=== PATIENT | female | born 1950 | race Caucasian/White ===

== ENCOUNTER → 2021-03-25 09:17 | Outpatient (CLI) | payer MEDICARE, OTHER, SELFPAY | PROVIDERS: PCP Family Medicine; Visit Provider Nurse Practitioner | DX: Z20.822 Contact with and (suspected) exposure to COVID-19 (principal) | CPT/HCPCS: C9803; U0003; U0005 ==

== ENCOUNTER → 2022-05-19 14:51 | Outpatient (CLI) | payer MEDICARE, OTHER, SELFPAY ==
--- NOTE | 2022-05-19 15:03 | US_ITS ---
FINAL REPORT TECHNIQUE: Transvaginal ultrasound imaging of the pelvis was obtained. CLINICAL HISTORY: Abnormal MRI showed Pelvic Mass-F/u on Mass-- MRI NOT DONE HERE FINDINGS: No prior exam was available for comparison. The uterus is small and atrophic measuring 6.2 x 2.6 x 4.4. In the medium measures 0.6 cm. Fibroids are noted in the uterus. The right ovary measures 2.8 cm in length. The left ovary measures 3.3 cm in length. No free fluid is seen. IMPRESSION: No definite ovarian mass identified. Reviewed, Interpreted and Dictated by Khoi Askew MD Transcribed by Meli Baker Authenticated and [facility]
== END ==
PROVIDERS: PCP Family Medicine; Visit Provider Obstetrics & Gynecology
DX: R19.00 Intra-abdominal and pelvic swelling, mass and lump, unspecified site (principal)
CPT/HCPCS: 76830

== ENCOUNTER 2024-11-09 09:00 | Outpatient (RCR) | payer MEDICARE, OTHER, SELFPAY | END 2024-11-09 23:59 | disposition home or self-care (01) | LOC: PT 09:00 | PROVIDERS: PCP Family Medicine; Visit Provider Orthopaedic Surgery | DX: Z96.651 Presence of right artificial knee joint (principal) | CPT/HCPCS: 97014; 97016; 97110; 97116; 97140; 97163; 97530; G0283 ==

== ENCOUNTER 2024-12-09 15:00 | Outpatient (RCR) | payer MEDICARE, OTHER, SELFPAY | END 2024-12-09 23:59 | disposition home or self-care (01) | LOC: PT 15:00 | PROVIDERS: PCP Family Medicine; Visit Provider Orthopaedic Surgery | DX: Z47.89 Encounter for other orthopedic aftercare (principal); Z96.652 Presence of left artificial knee joint | CPT/HCPCS: 97110; 97140; 97530 ==

== ENCOUNTER 2025-01-05 11:00 | Outpatient (RCR) | payer MEDICARE, OTHER, SELFPAY | END 2025-01-05 23:59 | disposition home or self-care (01) | LOC: PT 11:00 | PROVIDERS: PCP Family Medicine; Visit Provider Orthopaedic Surgery | DX: Z47.89 Encounter for other orthopedic aftercare (principal); Z96.651 Presence of right artificial knee joint | CPT/HCPCS: 97110; 97140; 97530 ==

== ENCOUNTER 2025-04-24 09:23 | Outpatient (CLI) | payer MEDICARE, OTHER, SELFPAY ==
--- OUTSIDE RECORDS SUMMARY | 2025-04-24 09:26 | XMS_ITS | Encounter Summary ---
Author Organization [facility] [address] Care Team Providers Care Distillery Supervisor Name Role Phone Kristie Javier MD Primary Care Provider Wilfredo Pfeiffer MD Unavailable [phone] Jefferson Balderas MD Unavailable [phone] Encounter Details Date Type Department Care Team (Late st Contact Info) Description 01/31/2025 Results Follow-Up [facility] [address] [place] [address] Kristie Javier MD [address] [place] [address] MM MAMMO DIGITAL SUZE SCREEN BILAT Social History Tobacco Use Types Packs/Day Years Used Date Smoking Tobacco: Never Smokeless Tobacco: Never Alcohol Use Standard Drinks/Week Comments Never 0 (1 standard drink = 0.6 oz pur e alcohol) PHQ-2 Answer Date Recorded PHQ-2 Total Score 0 05/09/2024 Sexually Active Control Partners Comments Not Currently Abstinence, Post-menopausal Male Comments No Sex and Gender Information Value Date Recorded Sex Assigned at Not on file Legal Sex Female 12:20 AM EDT Gender Identity Not on file Sexual Orientation Not on file documented as of this encounter Functional Status * Is the person deaf or does he/she have serious difficulty hearing? Answer Date of Assessment Author No 05/09/2024 11:03 AM EDT Luz Perez RMA * Is the person blind or does he/she have serious difficulty seeing even when wearing glasses? Answer Date of Assessment Author No 05/09/2024 11:03 AM Luz Thakur RMA * Does this person have serious difficulty walking or climbing stairs? Answer Date of Assessment Author No 05/09/2024 11:03 AM Luz Thakur RMA * Does this person have difficulty dressing or bathing? Answer Date of Assessment Author No 05/09/2024 11:03 AM Luz Thakur RMA * Because of a physical, mental or emotional condition, does this person have difficulty doing errands alone such as visiting a doctor's office or shopping? Answer Date of Assessment Author No 05/09/2024 11:03 AM Luz Thakur RMA documented as of this encounter Mental Status * Because of a physical, mental or emotional condition, does this person have serious difficulty concentrating, remembering or making decisions? Answer Entry Date Author No 05/09/2024 11:03 AM Luz Thakur RMA documented in this encounter Plan of Treatment Not on file documented as of this encounter Goals Goal Patient Goal Type Associated Problems Recent Progress Patient-Stated? Author Blood Pressure < 140/90 Blood Pressure 148/90(01/17 2:32 PM EDT) No Ju Loredo LPN Maintain a healthy diet, exercise regularly and maintain an ideal body weight General Ju Catherine LPN Wound Healing General On track(2019 10:08 AM EDT) Minoo Stubbs RN Note: Wound volume reduction goals 30% by week 4 50% by week 8 80% by week 12 100% by week 14 Problem Interventions Assess pain status. Assess wound size, charis wound, drainage and odor. Educate patient and caregivers on signs and symptoms of infection, risk factors, wound care and importance of prompt treatment. Obtain initial physician orders for appropriate dressing to maintain microenvironment conducive to healing. For foot or leg ulcers: Assess for peripheral edema. If present , measure ankle, calf and foot circumference on initial visit and as indicated. Palpate pedal pulses. Use doppler if unable to palpate dorsalis pedal or posterior tibial pulses. documented as of this encounter Visit Diagnoses Not on filedocumented in this encounter Additional Health Concerns Assessment Noted Time A fall risk assessment has been complete d for the patient 09/26/2024 7:34 AM EDT documented as of this encounter Care Teams Distillery Supervisor Relationship Specialty Start Date End Date Kristie Javier MD [address] [place] [address] PCP - General Family Medicine 01/19/13 Wilfredo Pfeiffer MD [address] [place] [address] Consulting Physician Obstetrics & Gynecology 12/02/17 [place] [id number] [address] [facility] [place] [address] Consulting Physician Dermatology 12/02/17 documented as of this encounter
--- OUTSIDE RECORDS SUMMARY | 2025-04-24 09:26 | XMS_ITS | Continuity of Care Document ---
Author Organization [facility] Address [address] [place] [address] Phone Care Team Providers Care Supply Assistant Name Role Phone Kristie Javier MD Primary Care Provider [phone] Wilfredo Pfeiffer MD Unavailable [phone] Jefferson Balderas MD Unavailable [phone] Encounters Date Type Department Care Team Description 01/31/2025 Results Follow-Up [facility] [address] [place] [address] Kristie Javier MD MM MAMMO DIGITAL SUZE SCREEN BILAT 01/31/2025 8:10 AM EDT - 01/31/2025 11:59 PM EDT Hospital Encounter [facility] [address] [place] [address] Kristie Javier MD Encounter for screening mammogram for malignant neoplasm of breast Discharge Disposition: Home or Self Care 01/17/2025 Travel 01/17/2025 2:10 PM EDT Office Visit [facility] [address] [place] [address] Kristie Javier MD Acute on chronic low back pain (Primary Dx); Primary hypertension; Hyperlipidemia, unspecified hyperlipidemia type; Elevated blood sugar 01/15/2025 Travel 10/04/2024 11:55 AM EDT Ancillary Procedure [facility] [address] [place] [address] Wilfredo Meehan MD 10/04/2024 8:38 AM EDT - 10/04/2024 11:59 PM EDT Hospital Encounter [facility] [address] [place], [place] [address] Wilfredo Meehan MD Discharge Disposition: Home or Self Care 10/04/2024 Travel 10/04/2024 9:50 AM EDT - 10/04/2024 12:10 PM EDT Surgery [facility] [address] [place] [address] Wilfredo Meehan MD ARTHROPLASTY, KNEE, TOTAL, OPEN 10/04/2024 9:51 AM EDT Anesthesia Event [facility] [address] [place] [address] Bry Sung MD Wilson, Christine E, BONE GLUE MAKER 10/04/2024 8:00 AM EDT - 10/04/2024 4:09 PM EDT Hospital Encounter [facility] [address] [place] [address] Wilfredo Meehan MD Discharge Disposition: Home or Self Care 09/27/2024 Orders Only [facility] [place] [facility] [address] [place] [address] Kristie Javier MD Hyperlipidemia, unspecified hyperlipidemia type (Primary Dx) 09/26/2024 Travel 09/26/2024 8:03 AM EDT - 09/26/2024 9:38 AM EDT Hospital Encounter [facility] [address] [place] [address] Elevated blood sugar; Primary hypertension; Hyperlipidemia, unspecified hyperlipidemia type Discharge Disposition: Home or Self Care 09/26/2024 9:39 AM EDT - 09/26/2024 11:59 PM EDT Hospital Encounter [facility] PRE-ADMIT TESTING [facility] [place] [address] Discharge Disposition: Home or Self Care 09/26/2024 7:40 AM EDT Office Visit [facility] [place] [facility] [address] [place] [address] Kristie Javier MD Pre-op examination (Primary Dx); Chronic pain of right knee; Primary hypertension; Hyperlipidemia, unspecified hyperlipidemia type; Elevated blood sugar 09/25/2024 Travel 06/08/2024 Telephone [facility] [place] [address] [facility] [place] [address] Kristie Javier MD Referral (back specialist ) 05/12/2024 Telephone [facility] [place] [address] [facility] [place] [address] Kristie Javier MD Orders (redo A1C and WBC) 05/10/2024 Orders Only [facility] [address] [place] [address] Kristie Javier MD Elevated blood sugar (Primary Dx) 05/09/2024 12:59 PM EDT - 05/09/2024 11:59 PM EDT Hospital Encounter [facility] [address] [place] [address] Hyperlipidemia, unspecified hyperlipidemia type; Primary hypertension; Elevated blood sugar Discharge Disposition: Home or Self Care 05/09/2024 11:10 AM EDT Office Visit [facility] [place] [address] [facility] [place] [address] Kristie Javier MD Encounter for Medicare annual wellness exam (Primary Dx); Needs flu shot; Need for COVID-19 vaccine; Muscle cramps; Primary hypertension; Hyperlipidemia, unspecified hyperlipidemia type 05/07/2024 Travel 05/06/2024 Travel 04/25/2024 Travel 04/25/2024 8:40 AM EDT Office Visit [facility] [place] [address] [facility] [place] [address] Kristie Javier MD Acute right-sided low back pain without sciatica (Primary Dx) 01/25/2024 8:12 AM EDT - 01/25/2024 11:59 PM EDT Hospital Encounter [facility] Mammography [address] [place] [address] Kristie Javier MD Encounter for screening mammogram for malignant neoplasm of breast Discharge Disposition: Home or Self Care 01/21/2024 6:55 AM EDT - 01/21/2024 11:59 PM EDT Hospital Encounter [facility] [address] [place] [address] Alec Light MD History of colonic polyps Discharge Disposition: Home or Self Care 01/20/2024 Travel 01/15/2024 Refill [facility] [address] [place] [address] Kristie Javier MD Medication Refill 11/23/2023 Refill [facility] [address] [facility] [place] [address] Alec Light MD Medication Refill 11/20/2023 Orders Only [facility] [address] [facility] [place] [address] Alec Light MD Screening for colon cancer (Primary Dx) 11/20/2023 Telephone [facility] [address] [place] [address] Alec Light MD Other 11/16/2023 8:30 AM EDT [facility] [address] [place] [address] Kristie Javier MD Primary hypertension; Hyperlipidemia, unspecified hyperlipidemia type; Muscle cramps 11/13/2023 7:05 AM EDT - 11/13/2023 11:59 PM EDT Hospital Encounter [facility] [address] [place] [address] Primary hypertension; Essential hypertension Discharge Disposition: Home or Self Care 11/11/2023 Travel 05/18/2023 7:23 AM EST - 05/18/2023 11:59 PM EST Hospital Encounter [facility] [address] [place] [address] Essential hypertension; Hyperlipidemia, unspecified hyperlipidemia type Discharge Disposition: Home or Self Care 05/18/2023 2:20 PM EST Office Visit [facility] [address] [place] [address] Kristie Javier MD Encounter for Medicare annual wellness exam (Primary Dx); Primary hypertension; Hyperlipidemia, unspecified hyperlipidemia type 05/15/2023 Patient Outreach [facility] [address] [place] [address] Kristie Javier MD Central Patient Navigator Outreach (AWV Questionnaire /) 05/15/2023 Travel 05/14/2023 Telephone [facility] [place] [address] [place] [address] Kristie Javier MD Orders (FBW) 04/28/2023 Refill [facility] [place] [facility] [address] [place] [address] Kristie Javier MD Medication Refill 03/27/2023 2:40 PM EDT Ancillary Procedure [facility] [place] [address] [place] [address] Abiodun Khan DO Fall, initial encounter Discharge Disposition: Home or Self Care 03/27/2023 2:30 PM EDT Office Visit [facility] [place] [address] [place] [address] [place] [address] Abiodun Khan DO Fall, initial encounter (Primary Dx); Sprain of left great toe, initial encounter; Contusion of left wrist, initial encounter 03/27/2023 Nurse Triage [address] [place] [address] Capri Lee RN 02/19/2023 8:10 AM EDT Office Visit [facility] [place] [address] [facility] [place] [address] Kristie Javier MD Encounter for removal of sutures (Primary Dx) 02/16/2023 Travel 02/16/2023 Telephone [facility] [place] [address] [place] [place] [address] Kristie Javier MD Appointment Needed (3 stitches removed ) 02/08/2023 Travel 02/08/2023 9:34 AM EDT - 02/08/2023 10:27 AM EDT [facility] [address] [place] [address] Maycol Grant MD Laceration of right middle finger without foreign body without damage to nail, initial encounter (Primary Dx) Discharge Disposition: Home or Self Care 01/12/2023 7:48 AM EDT - 01/12/2023 11:59 PM EDT Hospital Encounter [facility] [address] [place] [address] Kristie Javier MD Encounter for screening mammogram for malignant neoplasm of breast Discharge Disposition: Home or Self Care 09/30/2022 7:40 AM EDT Office Visit [facility] [place] [address] [place] [address] Kristie Javier MD Pre-op examination (Primary Dx); Right foot pain; Hyperlipidemia, unspecified hyperlipidemia type; Essential hypertension 09/29/2022 Travel 09/29/2022 9:25 AM EDT - 09/29/2022 11:59 PM EDT Hospital Encounter [facility] [address] [place] [address] Essential hypertension; Hyperlipidemia, unspecified hyperlipidemia type; Screening for thyroid disorder Discharge Disposition: Home or Self Care 09/25/2022 [facility] [address] [place] [address] Kristie Javier MD Orders (bloodwork ); Other (call back ) 09/05/2022 Refill [facility] [place] [facility] [address] [place] [address] Kristie Javier MD Medication Refill 09/05/2022 Refill [facility] [place] [facility] [address] [place] [address] Kristie Javier MD Medication Refill 09/03/2022 Refill [facility] [place] [facility] [address] [place] [address] Kristie Javier MD Medication Refill 05/14/2022 Telephone [facility] [place] [address] [facility] [place] [address] Kristie Javier MD Paperwork/forms (Fax - copy of MRI 6/2/11) 05/12/2022 8:40 AM EDT Office Visit [facility] [place] [facility] [address] [place] [address] Kristie Javier MD Influenza A (Primary Dx); Muscle cramps 05/11/2022 Travel 04/14/2022 7:30 AM EDT Office Visit [facility] [address] [place] [address] Kristie Javier MD Encounter for annual wellness exam in Medicare patient (Primary Dx); Essential hypertension; Hyperlipidemia, unspecified hyperlipidemia type; Need for influenza vaccination; Need for COVID-19 vaccine 04/11/2022 Travel 04/11/2022 7:35 AM EDT - 04/11/2022 11:59 PM EDT Hospital Encounter [facility] [address] [place], [place] [id number] Annual physical exam; Screening for thyroid disorder Discharge Disposition: Home or Self Care 04/01/2022 Plan of Care Documentation [facility] Physical [address] [address] 04/01/2022 Travel 04/01/2022 8:25 AM EDT - 04/01/2022 11:59 PM EDT Hospital Encounter [address] [address] Erica Sheikh, PT Discharge Disposition: Home or Self Care 03/25/2022 Travel 03/25/2022 8:25 AM EDT - 03/25/2022 11:59 PM EDT Hospital Encounter [address] [address] Erica Sheikh, PT Discharge Disposition: Home or Self Care 03/21/2022 Travel 03/21/2022 9:52 AM EDT - 03/21/2022 11:59 PM EDT Hospital Encounter [facility] Physical [address] [address] Vanessa Love, PT Discharge Disposition: Home or Self Care 03/18/2022 Travel 03/18/2022 10:45 AM EDT - 03/18/2022 11:59 PM EDT Hospital Encounter [address] [place] [address] Erica Sheikh, PT Discharge Disposition: Home or Self Care 03/14/2022 Refill [facility] [address] [address] Kristie Javier MD Medication Refill (lisinopriL-hydrochl orothiazide (PRINZIDE;ZESTORETIC ) 10-12.5 mg Oral Tablet 90 Tablet 1 08/14/2021 /Sig - Route: Take 1 Tablet by mouth daily. - Oral //pravastatin (PRAVACHOL) 40 mg Oral Tablet 90 Tablet 1 08/14/2021 /Sig - Route: Take 1 Tablet by mouth daily. - Oral //) 03/14/2022 Telephone [facility] [address] [address] Kristie Javier MD Lab Orders (FBW) 03/13/2022 Travel 03/13/2022 8:30 AM EDT - 03/13/2022 11:59 PM EDT Hospital Encounter [address] [address] Erica Sheikh, PT Discharge Disposition: Home or Self Care 03/11/2022 Plan of Care Documentation [address] [address] 03/11/2022 Travel 03/11/2022 7:40 AM EDT - 03/11/2022 11:59 PM EDT Hospital Encounter [address] [address] Erica Sheikh, PT Discharge Disposition: Home or Self Care 03/10/[address] [address] Kristie Javier MD Referral Follow-up 02/26/2022 Patient Outreach [facility] [address] [place] [address] Kristie Javier MD Central Patient Navigator Outreach (Appointment Needed) 02/25/2022 8:50 AM EDT Office Visit [facility] [place] [facility] [address] [place] [address] Kristie Javier MD Cellulitis of abdominal wall (Primary Dx) 02/03/2022 2:45 PM EDT Office Visit [facility] [place] [address] [place] [address] Ryan Simon MD Sprain of ligaments of lumbar spine, initial encounter (Primary Dx); DDD (degenerative disc disease), lumbar 01/24/2022 Orders Only [facility] [place] [address] Bita Watts RMA DDD (degenerative disc disease), lumbar (Primary Dx) 01/24/2022 3:00 PM EDT Ancillary Procedure [facility] [place] [address] Acute bilateral low back pain without sciatica 01/24/2022 2:20 PM EDT Office Visit [facility] [place] [address] Addison Ferro APRN Acute bilateral low back pain without sciatica (Primary Dx) 01/07/2022 Travel 01/07/2022 8:58 AM EDT - 01/07/2022 11:59 PM EDT Hospital Encounter [facility] [address] [facility] [place] [address] Kristie Javier MD Encounter for screening mammogram for malignant neoplasm of breast Discharge Disposition: Home or Self Care 10/21/2021 Travel 10/21/2021 9:21 AM EDT - 10/21/2021 11:59 PM EDT Hospital Encounter [facility] [place] [address] [place] [address] Muscle cramps; Hyperlipidemia, unspecified hyperlipidemia type Discharge Disposition: Home or Self Care 10/21/2021 8:50 AM EDT Office Visit [facility] [place] [facility] [address] [place] [address] Kristie Javier MD Muscle cramps (Primary Dx); Hyperlipidemia, unspecified hyperlipidemia type 08/14/2021 Refill [facility] [address] [facility] [place] [address] Kristie Javier MD Medication Refill (pravastatin, lisinopril-hydrochlo rothiaz) 05/30/2021 Orders Only [facility] [address] [place] [address] Kristie Javier MD Bacterial vaginosis (Primary Dx) 05/29/2021 Orders Only [address] [address] Nguyen Gomez RN UTI symptoms 05/29/2021 Travel 05/29/2021 4:50 PM EST Office Visit [facility] [place] [address] Kristie Javier MD Dysuria (Primary Dx) 05/06/2021 Patient Outreach [address] [address] Christen Carter Brianna Central Order Completion Outreach 04/12/2021 Travel 04/12/2021 7:20 AM EDT - 04/12/2021 11:59 PM EDT Hospital Encounter [facility] [address] [place] [address] Essential hypertension; Hyperlipidemia, unspecified hyperlipidemia type Discharge Disposition: Home or Self Care 04/11/2021 4:09 PM EDT - 04/11/2021 11:59 PM EDT Hospital Encounter [facility] [address] [place] [address] Right foot pain; Bunion of great toe of right foot Discharge Disposition: Home or Self Care 04/11/2021 Travel 04/11/2021 3:10 PM EDT Office Visit [facility] [place] [address] Kristie Javier MD Right foot pain (Primary Dx); Bunion of great toe of right foot; Essential hypertension; Hyperlipidemia, unspecified hyperlipidemia type; Encounter for Medicare annual wellness exam; Flu vaccine need 03/26/2021 Abstract [facility] [place] [address] [place] [address] Kristie Javier MD 01/29/2021 Orders Only [facility] [place] [facility] [address] [facility] [place] [address] Kristie Javier MD Anal fissure (Primary Dx) 01/25/2021 Telephone [facility] [place] [place] [address] Kristie Javier MD Other (hemmorhoids ) 12/12/2020 Travel 12/12/2020 11:45 AM EDT - 12/12/2020 11:59 PM EDT Hospital Encounter [facility] [address] [place] [address] Kristie Javier MD Visit for screening mammogram Discharge Disposition: Home or Self Care 12/11/2020 Travel 11/01/2020 10:30 AM EDT Office Visit [facility] [place] [address] [place] [address] Kristie Javier MD Allergic contact dermatitis due to plants, except food (Primary Dx) 11/01/2020 Travel 11/01/2020 Telephone [facility] [facility] [address] [facility] [place] [address] Kristie Javier MD Symptom Call 10/09/2020 10:05 AM EDT - 10/09/2020 11:59 PM EDT Hospital Encounter [facility] [address] [place] [address] Hyperlipidemia, unspecified hyperlipidemia type; Essential hypertension Discharge Disposition: Home or Self Care 10/09/2020 Travel 10/09/2020 9:00 AM EDT Office Visit [facility] [place] [address] [place] [address] Kristie Javier MD Hyperlipidemia, unspecified hyperlipidemia type (Primary Dx); Essential hypertension; Anal fissure 10/08/2020 Patient Outreach [facility] [address] [place] [address] Kristie Javier MD Central Patient Navigator Outreach (AWV Questionnaire) 05/24/2020 Travel 05/24/2020 10:39 AM EST - 05/24/2020 11:59 PM EST Hospital Encounter [facility] [address] [place] [address] Rosario Callejas APRN Traumatic ulcer of right lower extremity with necrosis of muscle (HCC) (Primary Dx); Varicose 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 Discharge Disposition: Home or Self Care 05/10/2020 Travel 05/10/2020 9:41 AM EDT - 05/10/2020 11:59 PM EDT Hospital Encounter [facility] [address] [place] [address] Jeovany Callejasa, BONE GLUE MAKER Traumatic ulcer of right lower extremity with necrosis of muscle (HCC) (Primary Dx); Venous insufficiency of both lower extremities Discharge Disposition: Home or Self Care 05/08/[address] [address] Kristie Javier MD Symptom Call (Hemrroids ) 04/26/2020 Travel 04/26/2020 9:51 AM EDT - 04/26/2020 11:59 PM EDT Hospital Encounter [facility] [address] [place] [address] Rosario Callejas, BONE GLUE MAKER Traumatic ulcer of right lower extremity with necrosis of muscle (HCC) (Primary Dx); Varicose 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 Discharge Disposition: Home or Self Care 04/19/2020 Travel 04/19/2020 9:38 AM EDT - 04/19/2020 11:59 PM EDT Hospital Encounter [facility] [address] [place] [address] Matheus Varela MD Ulcer of right lower extremity with muscle involvement without evidence of necrosis (HCC) (Primary Dx); Traumatic ulcer of right lower extremity with necrosis of muscle (HCC); Venous insufficiency of both lower extremities; Traumatic ulcer of right lower leg with fat layer exposed (HCC) Discharge Disposition: Home or Self Care 04/12/2020 Travel 04/12/2020 8:59 AM EDT - 04/12/2020 11:59 PM EDT Hospital Encounter [facility] [address] [facility] [place] [address] Matheus Varela MD Ulcer of right lower extremity with muscle involvement without evidence of necrosis (HCC) (Primary Dx); Traumatic ulcer of right lower extremity with necrosis of muscle (HCC); Venous insufficiency of both lower extremities Discharge Disposition: Home or Self Care 04/03/[address] [address] Kristie Javier MD Symptom Call 04/02/2020 2:15 PM EDT - 04/02/2020 11:59 PM EDT Hospital Encounter [facility] [address] [place] [address] Matheus Varela MD Ulcer of right lower extremity with muscle involvement without evidence of necrosis (HCC) (Primary Dx); Traumatic ulcer of right lower extremity with necrosis of muscle (HCC); Venous insufficiency of both lower extremities Discharge Disposition: Home or Self Care 04/02/2020 9:30 AM EDT [facility] [address] Kristie Javier MD Open wound (Primary Dx) 04/02/2020 Travel 04/01/2020 4:00 PM EDT Office Visit [facility] Urgent Care [address] [address] Mica Torrez MD Cellulitis of right lower extremity (Primary Dx); Open wound of right lower leg, initial encounter 04/01/2020 Travel 03/20/2020 [facility] [address] [place] [address] Ju Loredo LPN Medication Reaction 03/20/2020 Travel 03/20/2020 10:00 AM EDT Office Visit [facility] [place] [address] [address] Kristie Javier MD Essential hypertension (Primary Dx); Hyperlipidemia, unspecified hyperlipidemia type; Injury of right lower extremity, initial encounter; Needs flu shot; Encounter for Medicare annual wellness exam 03/14/2020 8:20 AM EDT - 03/14/2020 11:59 PM EDT Hospital Encounter [facility] [address] [place] [address] Essential hypertension; Hyperlipidemia, unspecified hyperlipidemia type Discharge Disposition: Home or Self Care 03/14/2020 Travel 03/13/2020 Travel 03/13/2020 Patient Outreach [facility] [address] [place] [address] Kristie Javier MD Central Patient Navigator Outreach (AWV and AWV quesitonnaire) 03/06/2020 Telephone [facility] [place] [facility] [address] [place] [address] Kristie Javier MD Other (AWE) 01/12/[address] [address] Lyn Leone RMBrianna Diarrhea 01/12/2020 Travel 11/18/2019 12:30 PM EDT - 11/18/2019 11:59 PM EDT Hospital Encounter [facility] [address] [place] [address] Kristie Javier MD Encounter for screening mammogram for malignant neoplasm of breast Discharge Disposition: Home or Self Care 11/18/2019 Travel 08/25/2019 Travel 03/16/2019 3:15 PM EDT Office Visit [facility] [address] [facility] [address] [place] [address] Jefferson Stringer DO Varicose 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; Venous insufficiency of both lower extremities 12/21/2018 8:00 AM EDT Office Visit [facility] [place] [address] [place] [address] Kristie Javier MD Chest pain at rest (Primary Dx); Essential hypertension; Hyperlipidemia, unspecified hyperlipidemia type; Encounter for Medicare annual wellness exam; Symptomatic varicose veins of both lower extremities; Need for shingles vaccine 12/20/2018 Patient Outreach [facility] [place] [address] Kristie Javier MD Medicare Annual Wellness (Medicare Annual Wellness Questionnaire) 12/20/2018 7:34 AM EDT - 12/20/2018 11:59 PM EDT Hospital Encounter [facility] [address] [place] [address] Hyperlipidemia, unspecified hyperlipidemia type; Essential hypertension Discharge Disposition: Home or Self Care 12/13/2018 Telephone [facility] [place] [address] Kristie Javier MD Orders (blood work ) 12/10/2018 [facility] [address] [place] [address] Alec Light MD 12/10/2018 Abstract [facility] [address] [place] [address] Lay Lemus RMA 10/25/2018 1:45 PM EDT - 10/25/2018 11:59 PM EDT Hospital Encounter [facility] [address] [place] [address] Kristie Javier MD Encounter for screening for malignant neoplasm of breast Discharge Disposition: Home or Self Care 05/11/2018 [facility] [address] Lyn Leone RMA Essential hypertension; Hyperlipidemia, unspecified hyperlipidemia type 05/11/2018 9:00 AM EDT Clinical Support [facility] [place] [address] Lyn Leone RMA Immunization due (Primary Dx) 12/02/2017 8:00 AM EDT - 12/02/2017 11:59 PM EDT Hospital Encounter [facility] [place] [facility] [address] [place] [address] Essential hypertension; Hyperlipidemia, unspecified hyperlipidemia type Discharge Disposition: Home or Self Care 12/02/2017 7:40 AM EDT Office Visit [facility] [place] [address] [facility] [place] [address] Kristie Javier MD Encounter for Medicare annual wellness exam (Primary Dx); Essential hypertension; Hyperlipidemia, unspecified hyperlipidemia type 09/24/2017 8:23 AM EDT - 09/24/2017 11:59 PM EDT Hospital Encounter [facility] [address] [place] [address] Kristie Javier MD Encounter for screening mammogram for malignant neoplasm of breast Discharge Disposition: Home or Self Care 05/06/2017 8:45 AM EDT - 05/06/2017 11:59 PM EDT Hospital Encounter [facility] [address] [place] [address] Essential hypertension; Hyperlipidemia, unspecified hyperlipidemia type Discharge Disposition: Home or Self Care 05/05/2017 2:50 PM EDT Office Visit [facility] [address] [facility] [place] [address] Kristie Javier MD Essential hypertension (Primary Dx); Hyperlipidemia, unspecified hyperlipidemia type; Flu vaccine need; Skin irritation 12/22/2016 9:00 AM EDT - 12/22/2016 11:59 PM EDT Hospital Encounter [facility] [address] [place] [address] Kristie Javier MD Well adult exam; Asymptomatic menopause Discharge Disposition: Home or Self Care 10/16/2016 Orders Only [facility] [address] [facility] [place] [address] Keya Spence RMA Hyperlipidemia, unspecified hyperlipidemia type (Primary Dx) 10/15/2016 8:28 AM EDT - 10/15/2016 11:59 PM EDT Hospital Encounter [facility] [address] [facility] [place] [address] Essential hypertension; Well adult exam; Need for hepatitis C screening test; Hyperlipidemia, unspecified hyperlipidemia type Discharge Disposition: Home or Self Care 10/15/2016 8:00 AM EDT Office Visit [facility] [address] [address] Kristie Javier MD Well adult exam (Primary Dx); Need for hepatitis C screening test; Asymptomatic menopause; Essential hypertension; Hyperlipidemia, unspecified hyperlipidemia type 10/14/[address] [address] Ju Loredo LPN Results 05/26/2016 7:30 AM EST - 05/26/2016 11:59 PM EST Hospital Encounter [facility] Mammography [address] [place] [address] Kristie Javier MD Visit for screening mammogram Discharge Disposition: Home or Self Care 01/09/[address] [address] Kristie Javier MD 12/21/2015 7:25 AM EDT - 12/21/2015 11:59 PM EDT Hospital Encounter [facility] [address] [place] [address] Well adult exam; Essential hypertension; Hyperlipidemia Discharge Disposition: Home or Self Care 12/19/2015 1:50 PM EDT Office Visit [facility] [address] [address] Kristie Javier MD Well adult exam (Primary Dx); Essential hypertension; Hyperlipidemia; Need for prophylactic vaccination with combined kjwfjobyma-kmfmvjn-j ertussis (DTP) vaccine; Need for pneumococcal vaccination 12/11/[address] [address] Kristie Javier MD 05/25/2015 9:15 AM EST - 05/25/2015 11:59 PM EST Hospital Encounter [facility] Mammography [address] [place] [address] Kristie Javier MD Visit for screening mammogram Discharge Disposition: Home or Self Care 04/24/2015 1:30 PM EDT Office Visit [facility] [address] [facility] [place] [address] Kristie Javier MD Annual physical exam (Primary Dx); Flu vaccine need; Hyperlipidemia; Obesity (BMI 30-39.9); Essential hypertension 04/23/2015 7:05 AM EDT - 04/23/2015 11:59 PM EDT Hospital Encounter [facility] [address] [place] [address] Routine general medical examination at health care facility Discharge Disposition: Home or Self Care 04/17/2015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 DX BONE DENSITY AXIAL SKELETON Routine 12/22/2016 9:21 AM EDT Well adult exam Asymptomatic menopause LDL, CALCULATED Routine 10/15/2016 8:29 AM EDT DIFFERENTIAL Routine 10/15/2016 8:29 AM EDT HEPATIC FUNCTION PANEL Routine 10/15/2016 8:29 AM EDT Hyperlipidemia, unspecified hyperlipidemia type LIPID PANEL REFLEX Routine 10/15/2016 8: 29 AM EDT Hyperlipidemia, unspecified hyperlipidemia type HCV ANTIBODY SCREEN W/ REFLEX Routine 10/15/2016 8:29 AM EDT Need for hepatitis C screening test Well adult exam CBC WITH DIFF Routine 10/15/2016 8:29 AM EDT Well adult exam BASIC METABOLIC PANEL Routine 10/15/2016 8:29 AM EDT Essential hypertension MM MAMMO DIGITAL SCREENING W CAD BILAT Routine 05/26/2016 7:41 AM EST Visit for screening mammogram LDL, CALCULATED Routine 12/21/2015 7:33 AM EDT DIFFERENTIAL Routine 12/21/2015 7:33 AM EDT THYROID STIMULATING HORMONE Routine 12/21/2015 7:33 AM EDT Well adult exam T4, FREE (THYROXINE) Routine 12/21/2015 7:33 AM EDT Well adult exam LIPID PANEL REFLEX Routine 12/21/2015 7: 33 AM EDT Well adult exam Essential hypertension Hyperlipidemia HEMOGLOBIN A1C Routine 12/21/2015 7:33 AM EDT Well adult exam COMPREHENSIVE METABOLIC PANEL Routine 12/21/2015 7:33 AM EDT Well adult exam Essential hypertension Hyperlipidemia CBC WITH DIFF Routine 12/21/2015 7:33 AM EDT Well adult exam HM COLONOSCOPY Routine 12/11/2015 HM COLONOSCOPY Routine 12/11/2015 MM MAMMO DIGITAL SCREENING W CAD BILAT Routine 05/25/2015 9:41 AM EST Visit for screening mammogram POCT WELCOME TO MEDICARE EKG Routine 04/24/2015 1:36 PM EDT Annual physical exam LIPID SCREEN Routine 04/23/2015 7:09 AM EDT Routine general medical examination at health care facility TSH REFLEX TO FT4 Routine 04/23/2015 7:0 9 AM EDT Routine general medical examination at [facility] care facility HEPATIC FUNCTION PANEL Routine 04/23/2015 7:09 AM EDT Routine general medical examination at [facility] care facility CBC Routine 04/23/2015 7:09 AM EDT Routine general medical examination at [facility] care facility BASIC METABOLIC PANEL Routine 04/23/2015 7:09 AM EDT Routine general medical examination at health care facility URINALYSIS POC Routine 08/29/2014 4:07 PM EST UA MICROSCOPIC Routine 08/29/2014 4:07 PM EST XR CHEST PA AND LATERAL PEDRO 08/29/2014 3:42 PM EST DRUGS OF ABUSE, SCREEN ONLY, URINE STAT 08/29/2014 3:30 PM EST EK EKG 12 LEAD STAT 08/29/2014 3:22 PM EST TROPONIN-T STAT 08/29/2014 2:47 PM EST DIFFERENTIAL STAT 08/29/2014 2:46 PM EST THYROID STIMULATING HORMONE STAT 08/29/2014 2:46 PM EST SALICYLATE LEVEL STAT 08/29/2014 2:46 PM EST ALCOHOL MEDICAL STAT 08/29/2014 2:46 PM EST CBC WITH DIFF STAT 08/29/2014 2:46 PM EST BASIC METABOLIC PANEL STAT 08/29/2014 2:46 PM EST ACETAMINOPHEN LEVEL STAT 08/29/2014 2 :46 PM EST LDL, CALCULATED Routine 08/26/2014 7:13 AM EST LIPID PANEL REFLEX Routine 08/26/2014 7: 13 AM EST Hyperlipidemia HEPATIC FUNCTION PANEL Routine 08/26/2014 7:13 AM EST Hyperlipidemia BASIC METABOLIC PANEL Routine 08/26/2014 7:13 AM EST HTN (hypertension) URINALYSIS STAT 04/08/2014 2:17 PM EDT XR PELVIS PEDRO 04/08/2014 1:28 PM EDT XR FOOT RIGHT AP LATERAL AND OBLIQUE PEDRO 04/08/2014 12:39 PM EDT XR FOOT LEFT AP LATERAL AND OBLIQUE PEDRO 04/08/2014 12:39 PM EDT XR ANKLE RIGHT AP LATERAL AND OBLIQUE PEDRO 04/08/2014 12:39 PM EDT XR ANKLE LEFT AP LATERAL AND OBLIQUE PEDRO 04/08/2014 12:39 PM EDT XR TIBIA FIBULA RIGHT AP AND LATERAL PEDRO 04/08/2014 12:39 PM EDT XR TIBIA FIBULA LEFT AP AND LATERAL PEDRO 04/08/2014 12:39 PM EDT MM MOBILE MAMMO DIGITAL SCREEN W CAD LISA Routine 04/03/2014 3:55 PM EDT Other screening mammogram LIPID SCREEN Routine 01/20/2014 10:12 AM EDT HTN (hypertension) Hyperlipidemia HEPATIC FUNCTION PANEL Routine 01/20/2014 10:12 AM EDT HTN (hypertension) Hyperlipidemia BASIC METABOLIC PANEL Routine 01/20/2014 10:12 AM EDT HTN (hypertension) Hyperlipidemia LDL, CALCULATED Routine 01/17/2013 8:55 AM EDT LIPID PANEL REFLEX Routine 01/17/2013 8: 55 AM EDT Hyperlipidemia HEPATIC FUNCTION PANEL Routine 01/17/2013 8:55 AM EDT Hyperlipidemia BASIC METABOLIC PANEL Routine 01/17/2013 8:55 AM EDT HTN (hypertension) SCANNED LABS 12/29/2012 11:12 AM EDT MM MAMMO DIGITAL SCREENING W CAD BILAT Routine 12/20/2012 12:12 PM EDT Other screening mammogram XR FOOT RIGHT AP LATERAL AND [place]IQUE Routine 10/20/2012 5:11 PM EDT Right foot pain LDL, CALCULATED Routine 10/19/2012 7:21 AM EDT DIFFERENTIAL Routine 10/19/2012 7:21 AM EDT LIPID PANEL REFLEX Routine 10/19/2012 7: 21 AM EDT HTN (hypertension) HEPATIC FUNCTION PANEL Routine 10/19/2012 7:21 AM EDT HTN (hypertension) CBC WITH DIFF Routine 10/19/2012 7:21 AM EDT HTN (hypertension) BASIC METABOLIC PANEL Routine 10/19/2012 7:21 AM EDT HTN (hypertension) DIFFERENTIAL Routine 04/09/2011 7:56 AM EDT CBC WITH DIFF Routine 04/09/2011 7:56 AM EDT Pure hypercholesterolemia HTN (hypertension) LIPID SCREEN Routine 04/09/2011 7:56 AM EDT Pure hypercholesterolemia HTN (hypertension) HEPATIC FUNCTION PANEL Routine 04/09/2011 7:56 AM EDT HTN (hypertension) Pure hypercholesterolemia Encounter for long-term (current) use of other medications BASIC METABOLIC PANEL Routine 04/09/2011 7:56 AM EDT Pure hypercholesterolemia HTN (hypertension) MM US BREAST RIGHT Routine 03/29/2011 10:31 AM EDT Breast cyst MRI LUMBAR SPINE WO CONTRAST Routine 12/12/2010 3:43 PM EDT Sciatica XR HIP LEFT AP LATERAL W AP PELVIS Routine 12/12/2010 2:57 PM EDT Sciatica LDL, CALCULATED Routine 05/18/2010 8:17 AM EDT DIFFERENTIAL Routine 05/18/2010 8:17 AM EDT T4, FREE (THYROXINE) Routine 05/18/2010 8:17 AM EDT Unspecified essential hypertension Osteoarth NOS-unspec Hyperlipidemia NEC/NOS THYROID STIMULATING HORMONE Routine 05/18/2010 8:17 AM EDT Unspecified essential hypertension Osteoarth NOS-unspec Hyperlipidemia NEC/NOS CBC WITH DIFF Routine 05/18/2010 8:17 AM EDT Unspecified essential hypertension Osteoarth NOS-unspec Hyperlipidemia NEC/NOS LIPID PANEL REFLEX Routine 05/18/2010 8: 17 AM EDT Unspecified essential hypertension Osteoarth NOS-unspec Hyperlipidemia NEC/NOS BASIC METABOLIC PANEL Routine 05/18/2010 8:17 AM EDT Unspecified essential hypertension Osteoarth NOS-unspec Hyperlipidemia NEC/NOS SCANNED OR REPORT 02/26/2010 12:00 AM EDT SCANNED OR REPORT 02/20/2010 12:00 AM EDT EK EKG REG Routine 06/18/2007 3:06 PM EST EK EKG REG Routine 02/28/2005 4:37 PM EDT Results * MM MAMMO DIGITAL SUZE SCREEN BILAT (01/31/2025 8:28 AM EDT) Only the most recent of4 resultswithin the time period is included. Anatomical Region Laterality Modality Breast Bilateral Mammography 01/31/2025 8:28 AM EDT Impressions 01/31/2025 9:08 AM EDT Negative ([id number]) RECOMMENDATION: Routine Screening Mammogram in 1 Year Bilateral . . COMMENTS: DISCLAIMER *The patient was notified by MyChart or mail of the results for this examination. *The patient's information was entered into a reminder system with a target due date for the next breast imaging, in accordance with the [employer] and the Society of Breast Imaging recommendations. *Breast Imaging has a false negative rate of 15%. *Any patient with a palpable abnormality, unexplained by breast imaging, should be managed on a clinical basis by the attending physician. Narrative 01/31/2025 9:08 AM EDT EXAM: MM MAMMO DIGITAL SUZE SCREEN BILAT EXAM DATE: 01/31/2025 8:28 AM INDICATION: Z12.31-Encounter for screening mammogram for malignant neoplasm of [id number] COMPARISON STUDIES: Compared with prior studies the most recent being 01/25/2024 MM MAMMO DIGITAL SUZE SCREEN BILAT at [facility] [place] 01/12/2023 MM MAMMO DIGITAL SUZE SCREEN BILAT at [facility] [place] 01/07/2022 MM MAMMO DIGITAL SUZE SCREEN BILAT at [facility] TISSUE DENSITY: There are scattered areas of fibroglandular density. FINDINGS: No mammographic evidence of malignancy. Procedure Note Marianne Chow MD - 01/31/2025 EXAM: MM MAMMO DIGITAL SUZE SCREEN BILAT EXAM DATE: 01/31/2025 8:28 AM INDICATION: Z12.31-Encounter for screening mammogram for malignantneoplasm of [id number] COMPARISON STUDIES: Compared with prior studies the most recent being 01/25/2024 MM MAMMO DIGITAL SUZE SCREEN BILAT at [facility] 01/12/2023 MM MAMMO DIGITAL SUZE SCREEN BILAT at [facility] [place] 01/07/2022 MM MAMMO DIGITAL SUZE SCREEN BILAT at [facility] TISSUE DENSITY: There are scattered areas of fibroglandular density. FINDINGS: No mammographic evidence of malignancy. IMPRESSION: Negative ([id number]) RECOMMENDATION: Routine Screening Mammogram in 1 Year Bilateral . . COMMENTS: DISCLAIMER *The patient was notified by MyChart or mail of the results for this examination. *The patient's information was entered into a reminder system with atarget due date for the next breast imaging, in accordance with the [employer] and the Society of Breast Imaging recommendations. *Breast Imaging has a false negative rate of 15%. *Any patient with a palpable abnormality, unexplained by breast imaging,should be managed on a clinical basis by the attending physician. Kristie Javier MD IM MAMMOGRAPHY ORDERABLES Fi nal Result * US ANES GUIDANCE FOR NERVE BLOCK (10/04/2024 11:53 AM EDT) Only the most recent of2 resultswithin the time period is included. Narrative Genericuser, Audit - 10/04/2024 11:53 AM EDT Ultrasound guided nerve block performed by Anesthesiologist The study image(s) are for reference only and will not be interpreted by a Radiologist. Refer to the Anesthesia procedure note for image description and procedure details. Wilfredo Meehan MD [facility] US ORDERABLES Final Result * INTRAOP AIRWAY PLACEMENT (10/04/2024 9:58 AM EDT) Narrative [facility] - 10/04/2024 9:58 AM EDT Belkis Sylvester CRNA 10/04/2024 10:18 AM Intraop Airway Placement: Date/Time: 10/04/2024 9:58 AM Induction type: IV Mask size: Standard adult Pre-Oxygenation: Standard Mask ventilation: Not attempted Airway type: LMA Topical Anesthetic/Lubricant: Lubricant jelly Airway location: Oral Device size: 4 Secured by: Tape Placement verified: End tidal CO2 Condition: Atraumatic and Unchanged Insertion attempts: 1 Attempt 1 by: Nga Title: LIVING ADVISOR us Bry Sung MD ID ANESTHESIA Edited Result - Final [facility] [address] [id number] * Peripheral Block by Anesthesia (10/04/2024 8:38 AM EDT) Narrative [facility] - 10/04/2024 8:38 AM EDT Bry Sung MD 10/04/2024 10:12 AM Peripheral Block by Anesthesia Procedure Date/Time: 10/04/2024 8:38 AM Patient location during procedure: pre-op Reason for block: at surgeon's request and post-op pain management Staff and Pre-procedure checks Anesthesiologist: Bry Sung MD Performed: anesthesiologist Preanesthetic Checklist: Allergies confirmed, Block plan confirmed, Necessary block equipment present, Supplemental O2 applied, if needed, Anticoagulant confirmed, Block site marked, Patient identified- 2 criteria, Surgical procedure consent verified, Aseptic technique used, Drug/solution labeled, Resuscitaion equipment available, ELMO recommended monitors applied, IV access functioning, Sedation given, if needed and Resuscitation equipment available Immediate perianesthetic assessment completed: Yes Patient position: Supine Prep: Chloraprep Monitoring: BP, EKG, O2 Sat and Mental status assessed Position: Peripheral Block Block type: Adductor Canal Block Laterality: Right Injection technique: single-shot Pain pump: no pain pump placed Medication(s) Administered: Fentanyl (SUBLIMAZE) and Bupivacaine 0.5%-Epinephrine Needle Needle type: Stimuplex Needle size: 20Gx4 Nerve localization: anatomical landmarks and ultrasound guidance (Adductor Canal block- Sartorius and Vastus Medialis muscle, Femoral artery and Saphenous nerve are identified; the tip of the needle and spread of the local anesthetic around the Saphenous nerve are visualized. Ultrasound image documentation is attached/scanned in epic chart. No anatomical pathology noted during block placement.) Ultrasound probe: linear Ultrasound needle approach: in-plane Needle depth left (structure to skin): 3 cm Assessment Block success: a full evaluation pending Events: Uneventful Heart rate change: no Blood aspirated: no Paresthesia pain: none Resistance on injection: normal Intermittent incremental injection LA at 5ml Additional Notes A focused neurologic exam of the extremity prior to the block revealed no significant sensory or motor deficits. After informed consent was obtained, including discussions of rare events such as nerve injury and LAST, a time-out was performed. Sedation was given, allowing for meaningful verbal communication with the patient throughout the block procedure. Live ultrasound was used throughout block placement. No significant resistance was noted on injection. No apparent complications were noted. Ultrasound Image of the block is attached/scanned to the epic chart. us Bry Sung MD ANESTHESIA ORDERAB[place] [address] * (ABNORMAL) LIPID PANEL REFLEX (09/26/2024 8:09 AM EDT) Only the most recent of19 resultswithin the time period is included. Cholesterol 214(H) <200 mg/dL 09/26/2024 3:31 PM EDT [facility] Comment: < 200 Desirable 200 - 239 Borderline High >= 240 High Triglyceride 66 <150 mg/dL 09/26/2024 3:31 PM EDT [employer] [facility] Comment: < 150 Normal 150 - 199 Borderline High 200 - 499 High >= 500 Very High HDL 68 >=40 mg/dL 09/26/2024 3:31 PM EDT [employer] Comment: > 60 Optimal 40 - 60 Acceptable < 40 Low LDL Calculated 134(H) <100 mg/dL 09/26/2024 3:31 PM EDT [employer] Comment: < 100 Optimal 100 - 129 Near or above optimal 130 - 159 Borderline High 160 - 189 High >= 190 Very High The National Institutes of Health (NIH) equation is used for all lipid panels that report calculated LDL (LDL-C). Non-HDL-C Calculated 146(H) <=129 mg/dL 09/26/2024 3:31 PM EDT [facility] Comment: <130 Desirable 130-159 Above Desirable 160-189 Borderline High 190-219 High >= 220 Very High Fasting Specimen? Yes None 025 3:31 PM EDT [facility] Blood VENOUS BLOOD / Unknown Venipuncture / Unknown 09/26/2024 8:09 AM EDT 09/26/2024 8:09 AM EDT us Kristie Javier MD CHEMISTRY ORDERABLES Final Re sult [facility], [facility] [address] [facility] , [place] [address] [facility] [address] [place] [address] * CBC WITH DIFF (09/26/2024 8:09 AM EDT) Only the most recent of19 resultswithin the time period is included. WBC 5.4 3.7 - 10.3 x10(3)/mcL 09/26/2024 3:56 PM EDT [facility] RBC 4.37 3.90 - 5.20 x10(6)/mcL 09/26/2024 3:56 PM EDT [facility] Hgb 13.7 11.2 - 15.7 g/dL 09/26/2024 3:56 PM EDT [facility] Hct 42.8 34.0 - 45.0 % 09/26/2024 3:56 PM EDT [facility] MCV 97.9 80.0 - 100.0 fL 09/26/2024 3:56 PM EDT [facility] MCH 31.4 26.0 - 34.0 pg 09/26/2024 3:56 PM EDT [facility] MCHC 32.0 30.7 - 35.5 g/dL 09/26/2024 3:56 PM EDT [facility] RDW 13.3 <=14.9 % 09/26/2024 3:56 PM EDT [facility] Platelet 262 155 - 369 x10(3)/[facility] 09/26/2024 3:56 PM EDT [facility] MPV 11.7 8.8 - 12.5 fL 09/26/2024 3:56 PM EDT [facility] Neut Percent 50.5 % 09/26/2024 3:56 PM EDT [facility] Comment:Neutrophils equals s egs plus bands Imm Gran% 0.2 % 09/26/2024 3:56 PM EDT [facility] Comment:Automated count of m etamyelocytes, myelocytes and promyelocytes. Lymph Percent 37.6 % 09/26/2024 3:56 PM EDT [facility] [place] Percent 9.8 % 09/26/2024 3:56 PM EDT [facility] Eos Percent 1.5 % 09/26/2024 3:56 PM EDT [facility] Baso Percent 0.4 % 09/26/2024 3:56 PM EDT [facility] Neut # 2.7 1.6 - 6.1 x10(3)/[facility] 09/26/2024 3:56 PM EDT [facility] Comment:Neutrophils equals s egs plus bands IMMGRAN# 0.0 0.0 - 0.1 x10(3)/[facility] 09/26/2024 3:56 PM EDT [facility] Comment:Automated count of m etamyelocytes, myelocytes and promyelocytes. An absolute IG <0.1 is reported as 0.0. Lymph # 2.0 1.2 - 3.9 x10(3)/[facility] 09/26/2024 3:56 PM EDT [facility] [place] # 0.5 0.3 - 0.9 x10(3)/[facility] 09/26/2024 3:56 PM EDT [facility] Eos# 0.1 0.0 - 0.5 x10(3)/[facility] 09/26/2024 3:56 PM EDT [facility], [facility] Baso # 0.0 0.0 - 0.1 x10(3)/[facility] 09/26/2024 3:56 PM EDT [facility], [facility] Blood VENOUS BLOOD / Unknown Venipuncture / Unknown 09/26/2024 8:09 AM EDT 09/26/2024 8:09 AM EDT Kristie Javier MD HEMATOLOGY ORDERABLES Final R esult Performing Organization Address [facility] Co de Phone Number [employer] [address] , [place] [address] * HEMOGLOBIN A1C (09/26/2024 8:09 AM EDT) Only the most recent of3 resultswithin the time period is included. Hgb A1C 5.6 4.2 - 5.6 % 09/26/2024 4:21 PM EDT [facility] [employer] Est. Avg Glucose 114 mg/dL 09/26/2024 4:21 PM EDT [facility] Blood VENOUS BLOOD / Unknown Venipuncture / Unknown 09/26/2024 8:09 AM EDT 09/26/2024 8:09 AM EDT Narrative [facility] [employer] - 09/26/2024 4:21 PM EDT REFERENCE RANGE: Normal: 4.0-5.6% Pre-diabetes: 5.7-6.4% Provisional diagnosis of diabetes: >6.4% Hgb F>10% and anything which shortens red cell survival, such as hemolytic anemia, or unstable hemoglobin variants such as HbSS, HbSC, or HbCC, will lower the HbA1c value associated with a given level of glycemic control. Kristie Javier MD CHEMISTRY ORDERABLES Final Re sult Performing Organization Address [facility] Co de Phone Number [facility] [employer] [address] , [place] [address] [facility] [address] [place] [id number] * COMPREHENSIVE METABOLIC PANEL (09/26/2024 8:09 AM EDT) Only the most recent of14 resultswithin the time period is included. Sodium 141 136 - 145 mmol/L 09/26/2024 3:31 PM EDT [facility] Potassium 3.8 3.5 - 5.0 mmol/L 09/26/2024 3:31 PM EDT [facility] Chloride 106 98 - 107 mmol/L 09/26/2024 3:31 PM EDT [facility] Total CO2 27 22 - 29 mmol/L 09/26/2024 3:31 PM EDT [facility] Anion Gap 8 7 - 16 mmol/L 09/26/2024 3:31 PM EDT [facility] Calcium 9.1 8.8 - 10.4 mg/dL 09/26/2024 3:31 PM EDT [facility] Glucose Lvl 91 70 - 99 mg/dL 09/26/2024 3:31 PM EDT [facility] BUN 12 8 - 23 mg/dL 09/26/2024 3:31 PM EDT [facility] Creatinine 0.75 0.51 - 1.30 mg/dL 09/26/2024 3:31 PM EDT [facility] Albumin 3.9 3.2 - 4.6 gm/dL 09/26/2024 3:31 PM EDT [facility] Total Protein 6.5 6.4 - 8.3 gm/dL 09/26/2024 3:31 PM EDT [facility] Bili Total 0.4 0.2 - 1.3 mg/dL 09/26/2024 3:31 PM EDT [facility] ALT 15 <=41 U/L 09/26/2024 3:31 PM EDT [facility] AST 18 <=40 U/L 09/26/2024 3:31 PM EDT [facility] Alk Phos 43 36 - 123 U/L 09/26/2024 3:31 PM EDT [facility] eGFR (CKD-EPIcr 2020) 82 >=60 mL/min/1.7 3 m2 09/26/2024 3:31 PM EDT [facility] Comment:Estimated GFR was ca lculated using the CKD-EPIcr (2020) equation refit without race. The equation is recommended by the National Kid[employer] - [employer]ph[employer] Task Force. Blood VENOUS BLOOD / Unknown Venipuncture / Unknown 09/26/2024 8:09 AM EDT 09/26/2024 8:09 AM EDT Kristie Javier MD CHEMISTRY ORDERABLES Final Re sult [employer] [facility] [address] [place] [address], [place] [address] * POCT EKG (09/26/2024 7:43 AM EDT) Only the most recent of3 resultswithin the time period is included. 09/26/2024 7:43 AM EDT Impressions SEP OFFICE - 09/26/2024 7:43 AM EDT Sinus rhythm rate 64. Normal axis. Negative twaves unchanged from prior EKG 2018 and 2022 Kristie Javier MD POINT OF CARE CARDIOLOGY Kath l Result Performing Organization Address [facility] Co de Phone Number SEP OFFICE * COLONOSCOPY (01/21/2024 8:34 AM EDT) Anatomical Region Laterality Modality Endoscopy Narrative 01/21/2024 8:40 AM EDT Table formatting from the original result was not included. Findings The terminal ileum, cecum, ascending colon, transverse colon, descending colon, sigmoid colon and rectum appeared normal. Few scattered diverticula of moderate severity in the mid descending colon and mid sigmoid colon; no bleeding was identified Two internal medium, protruding (grade 2) hemorrhoids; no bleeding was identified Recommendation Recommend a high fiber diet. Repeat colonoscopy only for symptoms Office follow up as needed Pre-Procedure Diagnosis / Indication History of colonic polyps Post-Procedure Diagnosis History of colonic polyps Staff Staff Role No Staff Documented Medications See Anesthesia Record. Preprocedure A history and physical has been performed, and patient medication allergies have been reviewed. The patient's tolerance of previous anesthesia has been reviewed. The risks and benefits of the procedure and the sedation options and risks were discussed with the patient. All questions were answered and informed consent obtained. ASA 2 - Patient with mild systemic disease Details of the Procedure The patient underwent monitored anesthesia care, which was administered by an anesthesia professional. The patient's blood pressure, heart rate, level of consciousness, oxygen, respirations, ECG and ETCO2 were monitored throughout the procedure. A digital rectal exam was performed. The scope was introduced through the anus and advanced to the cecum. Retroflexion was performed in the rectum. Bowel prep was adequate. The patient experienced no blood loss. The procedure was not difficult. The patient tolerated the procedure well. There were no apparent adverse events. Patient provided education and educated on specific discharge instructions. Patient educated on medications given during the procedure and new medications for discharge. Patient verbalizes understanding of discharge education. Patient stable and awaiting transport for discharge. Events Procedure Events Event Event Time ENDO SCOPE IN TIME 01/21/2024 8:23 AM ENDO CECUM REACHED 01/21/2024 8:27 AM ENDO SCOPE WITHDRAW BEGIN 01/21/2024 8:27 AM TSG LUME TI REACHED 01/21/2024 8:27 AM ENDO SCOPE OUT TIME 01/21/2024 8:33 AM Specimens No specimens collected Alec Light MD ENDOSCOPY PROCEDURE ORDERAB LES Final Result * XR TOE LEFT 2 + VW (03/27/2023 2:46 PM EDT) Anatomical Region Laterality Modality Foot Radiographic Aaliyah ging 03/27/2023 2:46 PM EDT Impressions 03/27/2023 2:50 PM EDT No acute bony abnormality. - Note: Radiology results need to be interpreted within a comprehensive clinical context. If you have questions about the radiology report, please contact the office of the ordering clinician. Narrative 03/27/2023 2:50 PM EDT XR TOE LEFT 2 + VW, 03/27/2023 2:46 PM CLINICAL HISTORY: W19.XXXA-Unspecified fall, initial [id number] COMPARISON: None. PROCEDURE COMMENTS: XR TOE LEFT 2 + VW FINDINGS: There are postoperative changes of removal left first metatarsal osteotomy with intact screws through the proximal left first metatarsal bone. There is also osseous fusion of the left second DIP joint. No acute fracture or osseous malalignment. Osseous mineralization is normal. Probable postoperative changes of bunionectomy. Moderately advanced left first MTP joint degenerative changes. Remaining joint spaces are maintained. Soft tissues are unremarkable. Procedure Note Jhony Savage MD - 03/27/2023 XR TOE LEFT 2 + VW, 03/27/2023 2:46 PM CLINICAL HISTORY: W19.XXXA-Unspecified fall, [id number] COMPARISON: None. PROCEDURE COMMENTS: XR TOE LEFT 2 + VW FINDINGS: There are postoperative changes of removal left first metatarsal osteotomywith intact screws through the proximal left first metatarsal bone. There isalso osseous fusion of the left second DIP joint. No acute fracture or osseous malalignment. Osseous mineralization isnormal. Probable postoperative changes of bunionectomy. Moderately advanced leftfirst MTP joint degenerative changes. Remaining joint spaces are maintained. Soft tissues are unremarkable. IMPRESSION: No acute bony abnormality. - Note: Radiology results need to be interpreted within a comprehensiveclinical context. If you have questions about the radiology report, please contactthe office of the ordering clinician. us Abiodun Khan DO IMG DIAGNOSTIC IMAGING ORDERABL ES Final Result * XR WRIST LEFT PA LATERAL AND OBLIQUE (03/27/2023 2:46 PM EDT) Anatomical Region Laterality Modality Wrist Radiographic Aaliyah ging 03/27/2023 2:46 PM EDT Impressions 03/27/2023 2:50 PM EDT No acute bony abnormality of the wrist. - Note: Radiology results need to be interpreted within a comprehensive clinical context. If you have questions about the radiology report, please contact the office of the ordering clinician. Narrative 03/27/2023 2:50 PM EDT XR WRIST LEFT PA LATERAL AND OBLIQUE, 03/27/2023 2:46 PM CLINICAL HISTORY: W19.XXXA-Unspecified fall, initial [id number] COMPARISON: None. PROCEDURE COMMENTS: 4 views of the wrist, with PA, lateral, and bilateral oblique imaging. FINDINGS: Carpal alignments are maintained. No fracture or dislocation identified. No significant soft tissue finding. Joint spaces overall well-maintained. No periostitis. Procedure Note Jhony Savage MD - 03/27/2023 XR WRIST LEFT PA LATERAL AND OBLIQUE, 03/27/2023 2:46 PM CLINICAL HISTORY: W19.XXXA-Unspecified fall, [id number] COMPARISON: None. PROCEDURE COMMENTS: 4 views of the wrist, with PA, lateral, andbilateral oblique imaging. FINDINGS: Carpal alignments are maintained. No fracture or dislocation identified. No significant soft tissue finding. Joint spaces overall well-maintained. No periostitis. IMPRESSION: No acute bony abnormality of the wrist. - Note: Radiology results need to be interpreted within a comprehensiveclinical context. If you have questions about the radiology report, please contactthe office of the ordering clinician. Abiodun Khan DO IMG DIAGNOSTIC IMAGING ORDERABL ES Final Result * TSH REFLEX (09/29/2022 9:24 AM EDT) Only the most recent of4 resultswithin the time period is included. Pathologist [facility] TSH Reflex 1.580 0.270 - 4.200 mcIU/mL 09/29/2022 2:18 PM EDT [employer] Blood VENOUS BLOOD / Unknown Venipuncture / Unknown 09/29/2022 9:24 AM EDT 09/29/2022 9:24 AM EDT Narrative [facility] [employer] - 09/29/2022 2:18 PM EDT Ingestion of sahara doses of biotin (>5 mg/day) taken within 8 hours of drawing blood sample can interfere with this immunoassay test. Kristie Javier MD CHEMISTRY ORDERABLES Final Re sult [employer] [address] [facility] , [place] [address] * (ABNORMAL) POCT BALDEV INFLUENZA A/B (05/12/2022 1:30 PM EDT) Influenza A Antigen Positive(A) Negative 05/12/2022 9:32 AM EDT [facility] KATHY Influenza B Antigen Negative Negative 05/12/2022 9:32 AM EDT [facility] Swab SPECIMEN FROM NASOPHARYNGEAL STRUCTURE / Unknown 05/12/2022 1:30 PM EDT 05/12/2022 9:32 AM EDT Kristie Javier MD POINT OF CARE TEST ORDERABLES Final Result SHAYLEE CHAVEZ [address] [place] [address] * POCT BALDEV SARS ANTIGEN (05/12/2022 9:32 AM EDT) SARS Antigen Negative Negative SEP OFFICE Lot Number [id number] SEP OFFICE Expiration Date 09/12/2022 SEP OFFICE SeriAl # SEP OFFICE Control Line SEP OFFICE 05/12/2022 9:32 AM EDT Kristie Javier MD POINT OF CARE TEST ORDERABLES Final Result Performing Organization Address [facility] Co de Phone Number SEP OFFICE * XR LUMBAR SPINE AP AND LATERAL (01/24/2022 3:09 PM EDT) Anatomical Region Laterality Modality L-spine Radiographic Aaliyah ging 01/24/2022 3:09 PM EDT Impressions 01/24/2022 3:54 PM EDT No acute abnormality of the lumbar spine. - Note: Radiology results need to be interpreted within a comprehensive clinical context. If you have questions about the radiology report, please contact the office of the ordering clinician. Narrative 01/24/2022 3:54 PM EDT AP AND LATERAL LUMBAR SPINE, 01/24/2022 3:09 PM CLINICAL HISTORY: M54.50-Low back pain, [id number] COMPARISON: None. PROCEDURE COMMENTS: Minimum of 3 views lumbar spine per protocol. FINDINGS: Alignment intact. There are prominent multilevel degenerative disc changes with disc space narrowing endplate spurring most marked L5-S1. Facet arthropathy is very prominent the lower 3 lumbar levels. There are no compression fractures. Procedure Note Colby Pacheco III, MD - 01/24/2022 AP AND LATERAL LUMBAR SPINE, 01/24/2022 3:09 PM CLINICAL HISTORY: M54.50-Low back pain, [id number] COMPARISON: None. PROCEDURE COMMENTS: Minimum of 3 views lumbar spine per protocol. FINDINGS: Alignment intact. There are prominent multilevel degenerativedisc changes with disc space narrowing endplate spurring most marked L5-S1.Facet arthropathy is very prominent the lower 3 lumbar levels. There are no compression fractures. IMPRESSION: No acute abnormality of the lumbar spine. - Note: Radiology results need to be interpreted within a comprehensiveclinical context. If you have questions about the radiology report, please contactthe office of the ordering clinician. Addison Ferro APRN IMG DIAGNOSTIC IMAGING ORDER POOL Final Result * SEDIMENTATION RATE AUTOMATED (10/21/2021 9:21 AM EDT) [facility] Sed Rate 7 0 - 30 mm/hr 10/21/2021 2:30 PM EDT [facility] [employer] Blood VENOUS BLOOD / Unknown Venipuncture / Unknown 10/21/2021 9:21 AM EDT 10/21/2021 9:21 AM EDT Kristie Javier MD HEMATOLOGY ORDERABLES Final R esult Performing Organization Address City/[facility]/ZIP Co de Phone Number [facility] [employer] [address] [place] [address] , [place] [address] * MAGNESIUM LEVEL (10/21/2021 9:21 AM EDT) [facility] Magnesium 2.1 1.6 - 2.4 mg/dL 10/21/2021 4:17 PM EDT [employer] Blood VENOUS BLOOD / Unknown Venipuncture / Unknown 10/21/2021 9:21 AM EDT 10/21/2021 9:21 AM EDT Kristie Javier MD CHEMISTRY ORDERABLES Final Re sult Performing Organization Address City/[facility]/ZIP Co de Phone Number [facility] [employer] [address] [place] [address] , [place] [address] * CREATINE KINASE (10/21/2021 9:21 AM EDT) [facility] CK 131 26 - 192 U/L 10/21/2021 4:17 PM EDT [employer] Blood VENOUS BLOOD / Unknown Venipuncture / Unknown 10/21/2021 9:21 AM EDT 10/21/2021 9:21 AM EDT Kristie Javier MD CHEMISTRY ORDERABLES Final Re sult [facility] [address] [facility] , [place] [address] * (ABNORMAL) MOLECULAR VAGINITIS PANEL (MVP) (05/29/2021 4:45 PM EST) Pathologist [facility] Bacterial Vaginosis Detected(A) Not Detected 05/30/2021 12:55 PM EST [facility] Comment:Abnormal/Unbalanced vaginal microbiome as indicated by decreased concentration of healthy Lactobacillus crispatus and/or Lactobacillus jensenii with significant increased concentration of unhealthy G. vaginalis, A. vaginae, BVAB, Megasphaera-1 and/or Clostridiales. Nakaseomyces glabrata (previously Ya glabrata) Not Detected Not Detected 05/30/2021 12:55 PM EST [facility] Ya group Not Detected Not Detected 05/30/2021 12:55 PM EST [facility] Comment:C. albicans, C. trop icalis, C. parapsilosis, and/or C. dubliniensis NOT detected. Ya krusei Not Detected Not Detected 05/30/2021 12:55 PM EST [facility] Trichomonas vaginalis Not Detected Not Detected 05/30/2021 12:55 PM EST [facility] Swab SPECIMEN FROM VAGINA / Unknown 05/29/2021 4:45 PM EST 05/29/2021 4:45 PM EST Narrative [facility] - 05/30/2021 12:55 PM EST Test performed using the LE TOTE MAX Vaginal Panel, a real-time polymerase chain (PCR) molecular nucleic acid amplification test. Kristie Javier MD MICROBIOLOGY - GENERAL ORDERA BLES Final Result Performing Organization Address [facility]/ZIP Co de Phone Number [facility], [facility] [address] [facility] , [place] [address] * (ABNORMAL) SEP URINALYSIS POC (05/29/2021 4:40 PM EST) UA Color POC Yellow Color 05/29/2021 4:42 PM EST [facility]P KATHY UA Appear POC Clear Clear 05/29/2021 4:42 PM EST [facility] UA Gluc POC Negative Negative mg/dL 05/29/2021 4:42 PM EST [facility]ATH[facility] UA Bili POC Negative Negative 05/29/2021 4:42 PM EST [facility]Y UA Ketones POC Negative Negative mg/dL 05/29/2021 4:42 PM EST [facility]Y UA SG POC 1.025 1.001 - 1.035 no units 05/29/2021 4:42 PM EST [facility]ATHY UA Blood POC Negative Negative 05/29/2021 4:42 PM EST [facility]P KATHY UA pH POC 5.5 5.0 - 8.0 pH 05/29/2021 4:42 PM EST [facility]Y UA Protein POC Negative Negative mg/dL 05/29/2021 4:42 PM EST [facility]ATHY UA Urobilinogen POC 0.2 0.2, 1.0 05/29/2021 4:42 PM EST [facility]P KATHY UA Nitrite POC Negative Negative 05/29/2021 4:42 PM EST [facility]P KATHY UA Leuk Est POC Small(A) Negative 4:42 PM EST [facility]P KATHY Urine URINE SPECIMEN COLLECTION / Unknown 05/29/2021 4:40 PM EST 05/29/2021 4:42 PM EST us Kristie Javier MD POINT OF CARE TEST ORDERABLES [place] [address] * URINE CULTURE (NO STAIN) (05/29/2021 4:36 PM EST) Culture Multiple bacterial species isolated from urine consistent with urogenital commensal organisms. 05/31/2021 6:40 AM EST [facility] [employer] Urine URINE SPECIMEN COLLECTION, CLEAN CATCH / Unknown 05/29/2021 4:36 PM EST 05/29/2021 4:36 PM EST us Kristie Javier MD MICROBIOLOGY - GENERAL ORDERA BLES Final Result [facility] [address] [place] [address], [place] [address] * XR FOOT RIGHT AP LATERAL AND OBLIQUE (04/11/2021 4:21 PM EDT) Only the most recent of3 resultswithin the time period is included. Anatomical Region Laterality Modality Foot Radiographic Aaliyah ging 04/11/2021 4:21 PM EDT Impressions 04/11/2021 4:24 PM EDT 1. Hallux valgus with mild first MTP joint osteoarthritis. 2. Moderate second TMT joint osteoarthritis. - Narrative 04/11/2021 4:24 PM EDT XR FOOT RIGHT AP LATERAL AND OBLIQUE, 04/11/2021 4:21 PM CLINICAL HISTORY: Right foot pain, bunion. COMPARISON: None. PROCEDURE COMMENTS: Routine views per the ordered protocol. FINDINGS: Moderate hallux valgus alignment with mild first MTP joint degenerative changes. Moderate degenerative changes of the second tarsometatarsal joint. No acute fracture or dislocation. Posterior and plantar cocaine enthesophytes. Procedure Note Shaq James MD - 04/11/2021 XR FOOT RIGHT AP LATERAL AND OBLIQUE, 04/11/2021 4:21 PM CLINICAL HISTORY: Right foot pain, bunion. COMPARISON: None. PROCEDURE COMMENTS: Routine views per the ordered protocol. FINDINGS: Moderate hallux valgus alignment with mild first MTP joint degenerativechanges. Moderate degenerative changes of the second tarsometatarsal joint. No acute fracture or dislocation. Posterior and plantar cocaineenthesophytes. IMPRESSION: 1. Hallux valgus with mild first MTP joint osteoarthritis. 2. Moderate second TMT joint osteoarthritis. - us Kristie Javier MD IMG DIAGNOSTIC IMAGING ORDERA BLES Final Result * SCANNED LABS (03/27/2021 6:14 PM EDT) Only the most recent of2 resultswithin the time period is included. 03/27/2021 6:14 PM EDT us Unknown Provider HEMATOLOGY ORDERABLES Final Res ult * COVID19 SCANNED RESULT (03/25/2021) COVID 19 Negative SEP OFFICE Comment:[facility] willard ( see scanned result ) 03/25/2021 us Historical Provider MICROBIOLOGY - GENERAL ORDER POOL Final Result SEP OFFICE * MM MAMMO DIGITAL SCREENING W CAD BILAT (12/12/2020 12:10 PM EDT) Only the most recent of7 resultswithin the time period is included. Anatomical Region Laterality Modality Breast Bilateral Mammography 12/12/2020 12:3 8 PM EDT Impressions 12/12/2020 12:38 PM EDT Negative ([id number]) ~ RECOMMENDATION: Routine screening mammogram in 1 year. ~ DISCLAIMER * Any patient with a palpable abnormality, unexplained by breast imaging, should be managed on clinical basis by the attending physician. * Breast imaging has a false negative rate of 15%. * The patient was notified by mail of the results of this examination. *The patient's information was entered into a reminder system with a target due date for the next mammogram, in accordance with the [employer] and the Society of Breast Imaging recommendations. The mammogram was reviewed by a Radiologist and CAD. Narrative 12/12/2020 12:38 PM EDT Procedure:MM MAMMO DIGITAL SCREENING W CAD BILAT ~ Reason for exam: screening, asymptomatic. Z12.31-Encounter for screening mammogram for malignant neoplasm of [id number] ~ MM MAMMO DIG SCREEN CAD BILAT Bilateral CC and MLO view(s) were taken. There are scattered fibroglandular densities. Prior study comparison: Compared with prior studies the most recent being 11/18/19, 10/25/18 No mammographic evidence of malignancy. ~ Procedure Note Marta Faulkner MD - 12/12/2020 Procedure:MM MAMMO DIGITAL SCREENING W CAD BILAT ~ Reason for exam: screening, asymptomatic. Z12.31-Encounter for screening mammogram for malignant neoplasm of [id number] ~ MM MAMMO DIG SCREEN CAD BILAT Bilateral CC and MLO view(s) were taken. There are scattered fibroglandular densities. Prior study comparison: Compared with prior studies the most recentbeing 11/18/19, 10/25/18 No mammographic evidence of malignancy. ~ IMPRESSION: Negative ([id number]) ~ RECOMMENDATION: Routine screening mammogram in 1 year. ~ DISCLAIMER * Any patient with a palpable abnormality, unexplained by breast imaging, should be managed on clinical basis by the attending physician. * Breast imaging has a false negative rate of 15%. * The patient was notified by mail of the results of this examination. *The patient's information was entered into a reminder system with atarget due date for the next mammogram, in accordance with the [employer] and the Society of Breast Imaging recommendations. The mammogram was reviewed by a Radiologist and CAD. Kristie Javier MD IMG MAMMOGRAPHY ORDERABLES Fi nal Result * GMED COLONOSCOPY (12/10/2018 9:00 AM EDT) 12/10/2018 9:00 AM EDT Alec Light MD GI PROCEDURE ORDERABLES Nader jamie Result - Final Performing Organization Address City/[facility]/ZIP Co de Phone Number [facility] [address] [place] [address], [facility] [phone] * HM COLONOSCOPY (12/10/2018) Only the most recent of3 resultswithin the time period is included. Impressions SEP OFFICE - 12/10/2018 Moderate diverticulosis of the left side of the colon Grade/Stage II internal hemorrhoids Colonoscopy in 5 years Alec Light MD HEALTH MAINTENANCE Final Re sult SEP OFFICE * DX BONE DENSITY AXIAL SKELETON (12/22/2016 9:21 AM EDT) Anatomical Region Laterality Modality Dexa Scan 12/22/2016 Narrative 12/22/2016 4:08 PM EDT Indication: The patient is a female age 65 or older who requires a bone density assessment. Study was performed on Virtual[employer] 5. Bone Density: Region BMD T-score Z-score AP Spine (L1-L4) 1.050 0.0 2.0 Femoral Neck (Left) 0.785 -0.6 1.1 Total Hip (Left) 0.923 -0.2 1.3 Femoral Neck (Right) 0.729 -1.1 0.6 Total Hip (Right) 0.954 0.1 1.5 World Health Organization criteria for BMD interpretation classify patients as: Normal (T-score at or above -1.0), Low Bone Density (T-score between -1.0 and -2.5), or Osteoporotic (T-score at or below -2.5). T Scores are reported in Postmenopausal women and in men age 50 and older. Z-scores are reported in females prior to menopause and in males younger than age 50. 10-year Fracture Risk(1): Major Osteoporotic Fracture 8.2% Hip Fracture 0.8% Reported Risk Factors: [place] (), Neck BMD=0.729, BMI=34.2 (1) FRAX(R) Version 3.08. Fracture probability calculated for an untreated patient. Fracture probability may be lower if the patient has received treatment. Clinical Information Provided by Patient: Has used or is currently using the following medications: Diuretic Has had or currently has the following medical conditions: Back pain, Depression Patient maximum height was 66. Menopause Age: 50 Patient is postmenopausal Interpretation: Bone mineral density is in the low bone density range. Medical evaluation for secondary causes of low bone mineral density may be appropriate. A minimum of two years may be required between bone density studies due to inherent testing precision limitations. Intervals between BMD testing should be determined according to each patient's clinical status: typically one year after initiation or change in therapy is appropriate, with longer intervals once therapeutic effect is established. The spine portion of the study is limited by visual hypertrophic changes. Reported by: Belia Novak PA-C,CCD on 12/22/2016 10:20:00 AM. Kristie Javier MD IMJose DEXA ORDERABLES Final Res ult * HEPATITIS C ANTIBODY - SCREENING (10/15/2016 8:29 AM EDT) Hep C Ab Negative Negative [facility] Blood specimen (specimen) 10/15/2016 8:29 AM EDT 10/15/2016 2:12 PM EDT Kristie Javier MD HEMATOLOGY ORDERABLES Final R esult Performing Organization Address City/[facility] Co de Phone Number [facility] [address] [place] [address] * (ABNORMAL) LDL, CALCULATED (10/15/2016 8:29 AM EDT) Only the most recent of6 resultswithin the time period is included. Pathologist [facility] LDL Calculated 137(H) <=100 mg/dL [facility] Comment: < 100 Optimal 100 - 129 Near or above optimal 130 - 159 Borderline High 160 - 189 High >= 190 Very High Blood specimen (specimen) 10/15/2016 8:29 AM EDT 10/15/2016 2:12 PM EDT Kristie Javier MD CHEMISTRY ORDERABLES Final Re sult Performing Organization Address City/[facility] Co de Phone Number [facility] [address] [place] [address] * DIFFERENTIAL (10/15/2016 8:29 AM EDT) Only the most recent of6 resultswithin the time period is included. [facility] Neut Percent 46.0 % [facility] Lymph Percent 42.5 % [facility] [place] Percent 8.1 % [facility] ED [facility] Eos Percent 2.9 % [facility] Baso Percent 0.5 % [facility] Neut# 2.0 1.8 - 7.7 x10(3)/mcL [facility] Lymph# 1.9 0.6 - 4.8 x10(3)/mcL [facility] [place]# 0.4 0.0 - 1.3 x10(3)/mcL [facility] Eos# 0.1 0.0 - 0.5 x10(3)/mcL [facility] Baso# 0.0 0.0 - 0.2 x10(3)/mcL [facility] Blood specimen (specimen) 10/15/2016 8:29 AM EDT 10/15/2016 2:11 PM EDT Kristie Javier MD HEMATOLOGY ORDERABLES Final R esult Performing Organization Address City/[facility] de Phone Number [facility] [address] [place] [address] * HEPATIC FUNCTION PANEL (10/15/2016 8:29 AM EDT) Only the most recent of7 resultswithin the time period is included. Pathologist [facility] Total Protein 6.5 6.4 - 8.3 gm/dL [facility] Albumin 4.0 3.2 - 4.6 gm/dL [facility] Bili Direct <0.2 0.0 - 0.3 mg/dL [facility] Bili Total 0.4 0.1 - 1.3 mg/dL [facility] AST 15 <=40 IU/L [facility] ALT 16 <=41 IU/L [facility] Alk Phos 45 35 - 104 IU/L [facility] Blood specimen (specimen) 10/15/2016 8:29 AM EDT 10/15/2016 2:12 PM EDT Kristie Javier MD CHEMISTRY ORDERABLES Edited R esult - Final Performing Organization Address City/[facility] de Phone Number [facility] [address] [place] [address] * (ABNORMAL) BASIC METABOLIC PANEL (10/15/2016 8:29 AM EDT) Only the most recent of9 resultswithin the time period is included. Sodium 144 136 - 145 mmol/L [facility] Potassium 4.0 3.5 - 5.0 mmol/L [facility] Chloride 102 98 - 107 mmol/L [facility] Total CO2 24 22 - 29 mmol/L [facility] Anion Gap 18(H) 7 - 16 mmol/L [facility] Calcium 9.1 8.8 - 10.2 mg/dL [facility] Glucose Lvl 96 82 - 100 mg/dL [facility] BUN 15 8 - 23 mg/dL [facility] Creatinine 0.80 0.51 - 1.30 mg/dL [facility] GFR Afr Am >60 [facility] GFR Non Afr Am >60 [facility] Blood specimen (specimen) UPPER LIMB STRUCTURE / Unknown 10/15/2016 8:29 AM EDT 10/15/2016 2:12 PM EDT Kristie Javier MD CHEMISTRY ORDERABLES Edited R esult - Final Performing Organization Address [facility] [place] [address] * THYROID STIMULATING HORMONE (12/21/2015 7:33 AM EDT) Only the most recent of3 resultswithin the time period is included. TSH 1.740 0.270 - 4.200 mcIU/mL [facility] Blood specimen (specimen) UPPER LIMB STRUCTURE / Unknown 12/21/2015 7:33 AM EDT 12/21/2015 1:59 PM EDT Kristie Javier MD CHEMISTRY ORDERABLES Final Re sult Performing Organization Address [facility] [place] [address] * T4, FREE (THYROXINE) (12/21/2015 7:33 AM EDT) Only the most recent of2 resultswithin the time period is included. Free T4 1.05 0.93 - 1.70 ng/dL [facility] Blood specimen (specimen) 12/21/2015 7:33 AM EDT 12/21/2015 1:59 PM EDT us Kristie Javier MD CHEMISTRY ORDERABLES Final Re sult Performing Organization Address [facility] [place] [address] * POCT WELCOME TO MEDICARE EKG (04/24/2015 1:36 PM EDT) 04/24/2015 1:36 PM EDT Impressions SEP OFFICE - 04/24/2015 1:36 PM EDT EKG: NSR.normal axis and intervals. No acute changes Kristie Javier MD POINT OF CARE CARDIOLOGY Kath l Result SEP OFFICE * CBC (04/23/2015 7:09 AM EDT) WBC 5.0 4.0 - 11.0 x10(3)/mcL [facility] RBC 4.47 3.80 - 5.10 x10(6)/mcL [facility] Hgb 13.9 12.0 - 15.6 gm/dL [facility] Hct 42.6 35.7 - 45.9 % [facility] MCV 95.2 82.5 - 99.8 fL [facility] MCH 31.1 27.0 - 34.3 pg [facility] MCHC 32.7 32.1 - 35.3 gm/dL [facility] RDW 13.5 11.5 - 15.0 % [facility] Platelet 201 144 - 423 x10(3)/mcL [facility] MPV 10.3 6.8 - 10.8 fL [facility] Blood specimen (specimen) UPPER LIMB STRUCTURE / Unknown 04/23/2015 7:09 AM EDT 04/23/2015 7:09 AM EDT Kristie Javier MD HEMATOLOGY ORDERABLES Final R esult Performing Organization Address City/[facility]/ZIP Co de Phone Number [facility] [address] [place] [address] * (ABNORMAL) LIPID SCREEN (04/23/2015 7:09 AM EDT) Only the most recent of3 resultswithin the time period is included. Cholesterol 230(H) <=200 mg/dL [facility] Comment: < 200 Desirable 200 - 239 Borderline High >= 240 High Triglyceride 61 <=150 mg/dL [facility] Comment: < 150 Normal 150 - 199 Borderline High 200 - 499 High >= 500 Very High HDL 69 >=40 mg/dL [facility] Comment: > 60 Optimal 40 - 60 Acceptable < 40 Low LDL Calculated 149(H) <=100 mg/dL [facility] Comment: < 100 Optimal 100 - 129 Near or above optimal 130 - 159 Borderline High 160 - 189 High >= 190 Very High Blood specimen (specimen) UPPER LIMB STRUCTURE / Unknown 04/23/2015 7:09 AM EDT 04/23/2015 3:29 PM EDT Kristie Javier MD CHEMISTRY ORDERABLES Edited R esult - Final [facility] [address] [place] [address] * (ABNORMAL) URINALYSIS POC (08/29/2014 4:07 PM EST) UA Color POC Yellow [facility] UA Appear POC Clear Clear [facility] UA Gluc POC Negative Negative [facility] UA Ketones POC 1+ (15 mg/dl)(A) Negative [facility] UA Blood POC Negative Negative [facility] UA pH POC 6.0 5.0 - 8.0 [facility] UA Protein POC Negative Negative [facility] UA Urobilinogen POC 0.2 mg/dl <=1 mg/dl [facility] UA Nitrite POC Negative Negative [facility] UA Leuk Est POC Moderate(A) Negative [facility] UA SG POC <=1.005 1.001 - 1.035 [facility] Urine specimen (specimen) 08/29/2014 4:07 PM EST 08/29/2014 4:07 PM EST Jovanny Masters MD POINT OF CARE TEST ORDERABLES Final Result [facility] [address] [place] [address] * UA MICROSCOPIC (08/29/2014 4:07 PM EST) UA WBC 3-5 /HPF [facility] UA Squam Epi 3-5 /HPF [facility] Urine specimen (specimen) 08/29/2014 4:07 PM EST 08/29/2014 5:53 PM EST Jovanny Masters MD URINE ORDERABLES Final Result [facility] 1 [place] [address] * XR CHEST PA AND LATERAL (08/29/2014 3:42 PM EST) Anatomical Region Laterality Modality Chest Radiographic Aaliyah ging 08/29/2014 3:16 PM EST Impressions 08/29/2014 3:44 PM EST IMPRESSION: Heart size is within normal limits and the lungs are clear. Narrative 08/29/2014 3:44 PM EST XR CHEST PA AND LATERAL Aug 29, 2014 03:43:10 PM CLINICAL: -CHEST DISCOMFORT Procedure Note Carlos Eugene MD - 08/29/2014 XR CHEST PA AND LATERAL Aug 29, 2014 03:43:10 PM CLINICAL: -CHEST DISCOMFORT IMPRESSION: Heart size is within normal limits and the lungs areclear. us Jovanny Masters MD IMG DIAGNOSTIC IMAGING ORDERA BLES Final Result * DRUGS OF ABUSE, SCREEN ONLY, URINE (08/29/2014 3:30 PM EST) Cannaboinoid Screen, Urine Absent 50 ng/mL [facility] Benzodiazepines Screen Absent 200 ng/mL [facility] Cocaine(Metab.)Scr een, Urine Absent 150 ng/mL [facility] Opiate 300 Screen Absent 300 ng/mL [facility] Barbiturate Screen, Urine Absent 200 ng/mL [facility] Amphetamine Screen, Urine Absent 500 ng/mL [facility] Phencyclidine Screen Absent 25 ng/mL [facility] Methadone Screen, Urine Absent 300 ng/mL [facility] Oxycodone Screen Absent 100 ng/mL [facility] 6 AM (Heroin) Screen Absent 10 ng/mL [facility] Buprenorphine Screen Absent 5 ng/mL [facility] Creatinine Ur 40.1 mg/dL [facility] Comment: Greater than 20: Consistent with valid sample Greater than 2 but less than 20: Possible dilution Less than 2: Questionable valid sample Drug Screen Note These drug classes have been screened by immunoassay and are for medical purposes only. The results should not be used for non-medical purposes. If confirmation is desired, please place a separate order for each drug confirmation. Specimens will be saved for 3 business days should additional orders/testing be desired. [facility] Urine specimen (specimen) 08/29/2014 3:30 PM EST 08/29/2014 5:32 PM EST Jovanny Masters MD URINE ORDERABLES Final Result Performing Organization Address City/State/[facility] Co de Phone Number [facility] [address] [place] [address] * EK EKG 12 LEAD (08/29/2014 3:22 PM EST) Anatomical Region Laterality Modality Other 08/29/2014 3:22 PM EST Impressions 08/30/2014 3:32 PM EST Stationary ECG Study Schubert Arabella Interpretive Statements Sinus rhythm Anteroseptal T wave changes are nonspecific Borderline ECG No previous ECG available for comparison Electronically Signed On 2014-08-30 15:32:35 EST by Paramjit Arguello MD Narrative Procedure Note Paramjit Arguello MD - 08/30/2014 IMPRESSION Stationary ECG Study Schubert Arabella Interpretive Statements Sinus rhythm Anteroseptal T wave changes are nonspecific Borderline ECG No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 hyperlipidemia type 10/16/2016 Well adult exam Routine general medical examination at a [facility] care facility 12/22/2016 Asymptomatic menopause 12/22/2016 Essential hypertension Unspecified essential hypertension 05/05/2017 Hyperlipidemia, unspecified hyperlipidemia type 05/05/2017 Flu vaccine need Need for prophylactic vaccination and inoculation against influenza 05/05/2017 Skin irritation Unspecified disorder of skin and subcutaneous tissue 05/05/2017 Essential hypertension Unspecified essential hypertension 05/06/2017 Hyperlipidemia, unspecified hyperlipidemia type 05/06/2017 Encounter for screening mammogram for malignant neoplasm of breast Other screening mammogram 09/24/2017 Essential hypertension Unspecified essential hypertension 12/02/2017 Hyperlipidemia, unspecified hyperlipidemia type 12/02/2017 Encounter for Medicare annual wellness exam Routine general medical examination at a health care facility 12/02/2017 Essential hypertension Unspecified essential hypertension 12/02/2017 Hyperlipidemia, unspecified hyperlipidemia type 12/02/2017 Essential hypertension Unspecified essential hypertension 05/11/2018 Hyperlipidemia, unspecified hyperlipidemia type 05/11/2018 Immunization due Need for prophylactic vaccination and inoculation against unspecified single disease 05/11/2018 Encounter for screening for malignant neoplasm of breast 10/25/2018 Essential hypertension Unspecified essential hypertension 12/13/2018 Hyperlipidemia, unspecified hyperlipidemia type 12/13/2018 Hyperlipidemia, unspecified hyperlipidemia type 12/20/2018 Essential hypertension Unspecified essential hypertension 12/20/2018 Essential hypertension Unspecified essential hypertension 12/21/2018 Hyperlipidemia, unspecified hyperlipidemia type 12/21/2018 Chest pain at rest Chest pain, unspecified 12/21/2018 Encounter for Medicare annual wellness exam Routine general medical examination at a health care facility 12/21/2018 Symptomatic varicose veins of both lower extremities Varicose veins of lower extremities with other complications 12/21/2018 Need for shingles vaccine Need for prophylactic vaccination and inoculation against varicella 12/21/2018 Varicose 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 03/16/2019 Venous insufficiency of both lower extremities 03/16/2019 Encounter for screening mammogram for malignant neoplasm of breast Other screening mammogram 11/18/2019 Essential hypertension Unspecified essential hypertension 03/13/2020 Hyperlipidemia, unspecified hyperlipidemia type 03/13/2020 Essential hypertension Unspecified essential hypertension 03/14/2020 Hyperlipidemia, unspecified hyperlipidemia type 03/14/2020 Essential hypertension Unspecified essential hypertension 03/20/2020 Hyperlipidemia, unspecified hyperlipidemia type 03/20/2020 Injury of right lower extremity, initial encounter 03/20/2020 Needs flu shot Need for prophylactic vaccination and inoculation against influenza 03/20/2020 Encounter for Medicare annual wellness exam Routine general medical examination at a health care facility 03/20/2020 Cellulitis of right lower extremity Cellulitis and abscess of leg, except foot 04/01/2020 Open wound of right lower leg, initial encounter 04/01/2020 Ulcer of right lower extremity with muscle involvement without evidence of necrosis (HCC) 04/02/2020 Traumatic ulcer of right lower extremity with necrosis of muscle (HCC) 04/02/2020 Venous insufficiency of both lower extremities 04/02/2020 Open wound Open wound(s) (multiple) of unspecified site(s), without mention of complication 04/02/2020 Open wound Open wound(s) (multiple) of unspecified site(s), without mention of complication 04/03/2020 Ulcer of right lower extremity with muscle involvement without evidence of necrosis (HCC) 04/12/2020 Traumatic ulcer of right lower extremity with necrosis of muscle (HCC) 04/12/2020 Venous insufficiency of both lower extremities 04/12/2020 Ulcer of right lower extremity with muscle involvement without evidence of necrosis (HCC) 04/19/2020 Traumatic ulcer of right lower extremity with necrosis of muscle (HCC) 04/19/2020 Venous insufficiency of both lower extremities 04/19/2020 Traumatic ulcer of right lower leg with fat layer exposed (HCC) 04/19/2020 Traumatic ulcer of right lower extremity with necrosis of muscle (HCC) 04/26/2020 Varicose 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 04/26/2020 Traumatic ulcer of right lower extremity with necrosis of muscle (HCC) 05/10/2020 Venous insufficiency of both lower extremities 05/10/2020 Traumatic ulcer of right lower extremity with necrosis of muscle (HCC) 05/24/2020 Varicose 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 05/24/2020 Hyperlipidemia, unspecified hyperlipidemia type 10/09/2020 Essential hypertension Unspecified essential hypertension 10/09/2020 Hyperlipidemia, unspecified hyperlipidemia type 10/09/2020 Essential hypertension Unspecified essential hypertension 10/09/2020 Anal fissure 10/09/2020 Allergic contact dermatitis due to plants, except food Contact dermatitis and other eczema due to plants (except food) 11/01/2020 Visit for screening mammogram Other screening mammogram 12/12/2020 Anal fissure 01/29/2021 Right foot pain Pain in limb 04/11/2021 Bunion of great toe of right foot Bunion 04/11/2021 Right foot pain Pain in limb 04/11/2021 Bunion of great toe of right foot Bunion 04/11/2021 Essential hypertension Unspecified essential hypertension 04/11/2021 Hyperlipidemia, unspecified hyperlipidemia type 04/11/2021 Encounter for Medicare annual wellness exam Routine general medical examination at a health care facility 04/11/2021 Flu vaccine need Need for prophylactic vaccination and inoculation against influenza 04/11/2021 Essential hypertension Unspecified essential hypertension 04/12/2021 Hyperlipidemia, unspecified hyperlipidemia type 04/12/2021 UTI symptoms 05/29/2021 Dysuria 05/29/2021 Bacterial vaginosis Vaginitis and vulvovaginitis, unspecified 05/30/2021 Hyperlipidemia, unspecified hyperlipidemia type 08/14/2021 Essential hypertension Unspecified essential hypertension 08/14/2021 Muscle cramps Cramp of limb 10/21/2021 Hyperlipidemia, unspecified hyperlipidemia type 10/21/2021 Muscle cramps Cramp of limb 10/21/2021 Hyperlipidemia, unspecified hyperlipidemia type 10/21/2021 Encounter for screening mammogram for malignant neoplasm of breast Other screening mammogram 01/07/2022 DDD (degenerative disc disease), lumbar Degeneration of lumbar or lumbosacral intervertebral disc 01/24/2022 Acute bilateral low back pain without sciatica 01/24/2022 Acute bilateral low back pain without sciatica 01/24/2022 Sprain of ligaments of lumbar spine, initial encounter 02/03/2022 DDD (degenerative disc disease), lumbar Degeneration of lumbar or lumbosacral intervertebral disc 02/03/2022 Cellulitis of abdominal wall Cellulitis and abscess of trunk 02/25/2022 DDD (degenerative disc disease), lumbar Degeneration of lumbar or lumbosacral intervertebral disc 03/10/2022 Acute bilateral low back pain without sciatica 03/10/2022 Essential hypertension Unspecified essential hypertension 03/14/2022 Hyperlipidemia, unspecified hyperlipidemia type 03/14/2022 Annual physical exam Routine general medical examination at a health care facility 03/14/2022 Screening for thyroid disorder 03/14/2022 Annual physical exam Routine general medical examination at a health care facility 04/11/2022 Screening for thyroid disorder 04/11/2022 Essential hypertension Unspecified essential hypertension 04/14/2022 Hyperlipidemia, unspecified hyperlipidemia type 04/14/2022 Encounter for annual wellness exam in Medicare patient 04/14/2022 Need for influenza vaccination Need for prophylactic vaccination and inoculation against influenza 04/14/2022 Need for COVID-19 vaccine 04/14/2022 Muscle cramps Cramp of limb 05/12/2022 Influenza A Influenza with other respiratory manifestations 05/12/2022 Essential hypertension Unspecified essential hypertension 09/03/2022 Hyperlipidemia, unspecified hyperlipidemia type 09/03/2022 Hyperlipidemia, unspecified hyperlipidemia type 09/05/2022 Essential hypertension Unspecified essential hypertension 09/05/2022 Essential hypertension Unspecified essential hypertension 09/25/2022 Hyperlipidemia, unspecified hyperlipidemia type 09/25/2022 Screening for thyroid disorder 09/25/2022 Essential hypertension Unspecified essential hypertension 09/29/2022 Hyperlipidemia, unspecified hyperlipidemia type 09/29/2022 Screening for thyroid disorder 09/29/2022 Pre-op examination Preoperative examination, unspecified 09/30/2022 Right foot pain Pain in limb 09/30/2022 Hyperlipidemia, unspecified hyperlipidemia type 09/30/2022 Essential hypertension Unspecified essential hypertension 09/30/2022 Encounter for screening mammogram for malignant neoplasm of breast Other screening mammogram 01/12/2023 Laceration of right middle finger without foreign body without damage to nail, initial encounter 02/08/2023 Encounter for removal of sutures 02/19/2023 Fall, initial encounter 03/27/2023 Fall, initial encounter 03/27/2023 Sprain of left great toe, initial encounter 03/27/2023 Contusion of left wrist, initial encounter 03/27/2023 Essential hypertension Unspecified essential hypertension 04/28/2023 Essential hypertension Unspecified essential hypertension 05/14/2023 Hyperlipidemia, unspecified hyperlipidemia type 05/14/2023 Essential hypertension Unspecified essential hypertension 05/18/2023 Hyperlipidemia, unspecified hyperlipidemia type 05/18/2023 Encounter for Medicare annual wellness exam Routine general medical examination at a [facility] facility 05/18/2023 Primary hypertension Unspecified essential hypertension 05/18/2023 Hyperlipidemia, unspecified hyperlipidemia type 05/18/2023 Primary hypertension Unspecified essential hypertension 11/13/2023 Essential hypertension Unspecified essential hypertension 11/13/2023 Primary hypertension Unspecified essential hypertension 11/16/2023 Hyperlipidemia, unspecified hyperlipidemia type 11/16/2023 Muscle cramps Cramp of limb 11/16/2023 Screening for colon cancer Special screening for malignant neoplasms, colon 11/20/2023 History of colonic polyps Personal history of colonic polyps 11/20/2023 Screening for colon cancer Special screening for malignant neoplasms, colon 11/23/2023 Primary hypertension Unspecified essential hypertension 01/15/2024 Hyperlipidemia, unspecified hyperlipidemia type 01/15/2024 History of colonic polyps Personal history of colonic polyps 01/21/2024 Encounter for screening mammogram for malignant neoplasm of breast Other screening mammogram 01/25/2024 Acute right-sided low back pain without sciatica 04/25/2024 Hyperlipidemia, unspecified hyperlipidemia type 05/09/2024 Primary hypertension Unspecified essential hypertension 05/09/2024 Elevated blood sugar Other abnormal glucose 05/09/2024 Encounter for Medicare annual wellness exam Routine general medical examination at a [facility] care facility 05/09/2024 Needs flu shot Need for prophylactic vaccination and inoculation against influenza 05/09/2024 Need for COVID-19 vaccine 05/09/2024 Muscle cramps Cramp of limb 05/09/2024 Primary hypertension Unspecified essential hypertension 05/09/2024 Hyperlipidemia, unspecified hyperlipidemia type 05/09/2024 Elevated blood sugar Other abnormal glucose 05/10/2024 Acute right-sided low back pain, unspecified whether sciatica present 06/08/2024 Elevated blood sugar Other abnormal glucose 09/26/2024 Primary hypertension Unspecified essential hypertension 09/26/2024 Hyperlipidemia, unspecified hyperlipidemia type 09/26/2024 Pre-op examination Preoperative examination, unspecified 09/26/2024 Chronic pain of right knee 09/26/2024 Primary hypertension Unspecified essential hypertension 09/26/2024 Hyperlipidemia, unspecified hyperlipidemia type 09/26/2024 Elevated blood sugar Other abnormal glucose 09/26/2024 Hyperlipidemia, unspecified hyperlipidemia type 09/27/2024 Osteoarthritis of right knee, unspecified osteoarthritis type 10/04/2024 Acute on chronic low back pain 01/17/2025 Primary hypertension Unspecified essential hypertension 01/17/2025 Hyperlipidemia, unspecified hyperlipidemia type 01/17/2025 Elevated blood sugar Other abnormal glucose 01/17/2025 Encounter for screening mammogram for malignant neoplasm of breast Other screening mammogram 01/31/2025 Traumatic ulcer of right lower extremity (HCC) 04/02/2020 Goals Goal Patient Goal Type Associated Problems Recent Progress Patient-Stated? Author Blood Pressure < 140/90 Blood Pressure 148/90(01/17 2:32 PM EDT) Ju Catherine LPN Maintain a healthy diet, exercise regularly and maintain an ideal body weight General No Ju Loredo LPN Wound Healing General On track(2019 10:08 [...] palpate dorsalis pedal or posterior tibial pulses. Care Teams Supply Assistant Relationship Specialty Start Date End Date Kristie Javier MD [address] [place] [address] PCP - General Family Medicine 01/19/13 Wilfredo Pfeiffer MD [address] [place] [address] Consulting Physician Obstetrics & Gynecology 12/02/17 [place] [id number] [facility] [place] [address] Consulting Physician Dermatology 12/02/17
--- NOTE | 2025-04-24 10:30 | US_ITS ---
PROCEDURE: US TRANSVAGINAL CLINICAL INDICATION: pelvic mass in female COMPARISON: US US TRANSVAGINAL from 05/19/2022 FINDINGS: Transvaginal sonographic images of the pelvis were obtained. UTERUS: 5.7 cm x 4.5cmx 3.3cm anteverted thin endometrium measuring 2 mm. There is a small amount of fluid within the endometrial cavity. There is a fibroid posteriorly measuring 0.9 cm x 0.5 cm x 0.9 cm. LEFT OVARY: 2.3cmx1.3cmx1.4cm with a volume of 2ml. The left ovary has multiple small peripheral follicles. RIGHT OVARY: 2.8 cmx 1.7 cmx1.5cm with a volume of 3.6ml. The ovary has multiple small peripheral follicles. Both ovaries are seen and appear polycystic. Doppler flow to both ovaries are seen. There is no fluid in the cul-de-sac. IMPRESSION: 1. Anteverted uterus normal in shape and size. The endometrium is thin measuring 2 mm. 2. There is a small amount of fluid within the endometrium at the fundus. There is a posterior fibroid measuring 0.9 cm. 3. Both ovaries are enlarged for a postmenopausal woman and appear to have multiple small peripheral follicles. 4. No fluid in the cul-de-sac. Dictated by: Parminder Burch MD 04/24/2025 14:49 Parminder Burch MD in OV 04/24/2025 14:49
== END 2025-04-24 23:59 | disposition home or self-care (01) ==
LOC: RAD 09:23
PROVIDERS: PCP Family Medicine; Visit Provider Obstetrics & Gynecology
DX: N83.02 Follicular cyst of left ovary (principal); N83.01 Follicular cyst of right ovary; N85.4 Malposition of uterus; D25.9 Leiomyoma of uterus, unspecified; N83.8 Other noninflammatory disorders of ovary, fallopian tube and broad ligament; R19.00 Intra-abdominal and pelvic swelling, mass and lump, unspecified site; R93.89 Abnormal findings on diagnostic imaging of other specified body structures
CPT/HCPCS: 76830